=== PATIENT | male | born 1960 | race Caucasian/White ===

== ENCOUNTER 2023-02-16 08:38 | Outpatient (CLI) | payer BC, SELFPAY | END 2023-02-16 08:39 | disposition home or self-care (01) | PROVIDERS: Visit Provider Family Medicine | DX: Z01.818 Encounter for other preprocedural examination (principal); E78.5 Hyperlipidemia, unspecified; E03.9 Hypothyroidism, unspecified; E23.0 Hypopituitarism; Z13.6 Encounter for screening for cardiovascular disorders; Z12.5 Encounter for screening for malignant neoplasm of prostate | CPT/HCPCS: 80048; 80061; 84153; 84443; 85025 ==

== ENCOUNTER 2023-03-03 09:03 | Outpatient (CLI) | payer BC, SELFPAY | END 2023-03-03 09:04 | disposition home or self-care (01) | PROVIDERS: PCP Family Medicine; Visit Provider Orthopaedic Surgery | DX: Z01.818 Encounter for other preprocedural examination (principal) | CPT/HCPCS: 36415; 86850; 86900; 86901 ==

== ENCOUNTER 2023-03-04 08:54 | Outpatient (CLI) | payer BC, SELFPAY ==
[2023-03-04 14:35] LABS: SARS PCR* Negative SARS-CoV-2 (Negative)
== END 2023-03-04 08:55 | disposition home or self-care (01) ==
LOC: FBOREF 08:54
PROVIDERS: PCP Family Medicine; Visit Provider Orthopaedic Surgery
DX: Z01.812 Encounter for preprocedural laboratory examination (principal); Z20.822 Contact with and (suspected) exposure to COVID-19
CPT/HCPCS: 87635

== ENCOUNTER 2023-03-05 07:09 | Day surgery (SDC) | payer BC, SELFPAY ==
[2023-03-05] VITALS (23 sets, daily range): BP systolic 97–139; BP diastolic 59–115; PULSE 58–94; RESP 14–20; TEMP 36.1–36.9; O2SAT 95–100; BMI 29.3
--- NOTE | 2023-03-05 07:50 | SUR.PREOP ---
pt has scoriasis on his lower extremities, scalp and arms
[2023-03-05] MEDS: OXYCODONE (CR) 10 MG TAB.ER.12H PO (08:15)
[2023-03-05] MEDS: CELECOXIB 200 MG CAPSULE PO (08:15)
[2023-03-05] MEDS: ACETAMINOPHEN 500 MG TABLET 1000 MG PO ×3 (08:15→21:46)
[2023-03-05] MEDS: SODIUM CHLORIDE 0.9 % (FLUSH) 10 ML SYRINGE IVF ×2 (08:25→23:38)
[2023-03-05] MEDS: LACTATED RINGERS 1000 ML 1,000 ML 100 ML IV ×3 (08:25→11:55)
[2023-03-05] MEDS: MIDAZOLAM HCL 1 MG/ML inj IVP (09:25)
[2023-03-05] MEDS: fentaNYL 100 MCG/2 ML inj IVP (09:25)
--- NOTE | 2023-03-05 09:36 | W.ANESCHARGE ---
Anesthesia Charges Start Date/Time Anesthesia Start Date: 03/05/23 Anesthesia Start Time: 09:36 Stop Date/Time Anesthesia Stop Date: 03/05/23 Anesthesia Stop Time: 12:27
[2023-03-05] MEDS: CEFAZOLIN 2 GM INJ IVP (09:45)
--- NOTE | 2023-03-05 09:45 | CRLHL7_ITS ---
For Patients: As a result of the Cures Act, medical imaging exams and procedure reports are released immediately into your electronic medical record. You may view this report before your referring provider. If you have questions, please contact your health care provider. Indication: Hip replacement surgery Technique: AP hip fluoroscopic images. Fluoroscopy time 80.2 seconds. Findings/Impression: Hardware from a right total hip arthroplasty is in satisfactory position. Dictated by Anuj Fuentes MD @ 03/05/2023 12:28:55 PM (Electronically Signed)
[2023-03-05] MEDS: TRANEXAMIC ACID 100 MG/ML INJ 1000 MG IV (09:48)
--- NOTE | 2023-03-05 11:46 | CRLHL7_ITS ---
For Patients: As a result of the Cures Act, medical imaging exams and procedure reports are released immediately into your electronic medical record. You may view this report before your referring provider. If you have questions, please contact your health care provider. Indication: Post op right HOLDEN Technique: AP hip centered pelvis and lateral view right hip Findings/Impression: Hardware from a right total hip arthroplasty is in satisfactory position. Bone alignment is normal. No sign of acute fracture. Postop changes are within normal limits. Dictated by Anuj Fuentes MD @ 03/05/2023 12:55:29 PM (Electronically Signed)
--- NOTE | 2023-03-05 11:48 | P.ORPRC_ITS ---
Procedure Note Date of procedure: 03/05/23 Procedure: PREOPERATIVE DIAGNOSIS: Right hip osteoarthritis POSTOPERATIVE DIAGNOSIS: Right hip osteoarthritis NAME OF OPERATION: Right total hip arthroplasty SURGEON: Dex Mojica MD MANAGER TRAINEE: Andie Denise PA-C, ALESHA Lancaster IMPLANTS: 1. [employer] # 52 sector ingrowth cup 2. 36 x 52 +4 neutral polyethylene 3. Actis # 6 high offset collared ingrowth stem 4. 36 + 1.5 ceramic femoral head ANESTHESIA: General ESTIMATED BLOOD LOSS: 500 cc COMPLICATIONS: None SPECIMENS: None DRAINS: None PREOPERATIVE ANTIBIOTICS: Ancef 2 grams INDICATIONS: The patient is a 62-year-old with a longstanding history of severe, unrelenting right hip pain secondary to end-stage right hip osteoarthritis. Despite appropriate nonoperative management, including activity modification, use of an assist device, anti-inflammatories, vvra-[id number] pain medication, physical therapy and injections, they continue to have pain and disability. Operative intervention was offered. The risks, benefits and expected outcomes were discussed in detail. These included but were not limited to: Infection, bleeding, injury to blood vessel or nerve, venous thromboembolism. All questions were answered to their satisfaction. Use of an payroll administrative assistant was necessary throughout the case for patient positioning and safety, soft tissue retraction and closure. PROCEDURE: The patient was placed supine on the Ferguson table. General anesthesia was administered. The payroll administrative assistant made sure the patient was properly positioned. The right hip was prepped and draped in the usual sterile fashion. The image intensifier was brought in for a perfect AP pelvis and a perfect double tear drop AP view of each hip which were used for intraoperative templating with our fluoroscopic guide. An oblique incision was made 3 cm distal and 3 cm lateral to the anterior lopez perior iliac spine. The payroll administrative assistant retracted the soft tissues to protect them. Subcutaneous dissection was taken with electrocautery to the superficial fascia. The fascia was divided in line with the incision. Blunt dissection was carried medially to the tensor fascia hiram and sartorius interval. Deep dissection was carried with electrocautery. The circumflex vessels were cauterized and divid ed. The capsule was exposed and then divided in a T-fashion, tagged with #1 Ethibond sutures. Retractors were placed in the joint, held by the payroll administrative assistant. The corkscrew was placed in the femoral head. The neck cut was made in the subcapital region. We made a second neck cut more distal. The napkin ring of bone was removed. The femoral head was removed intact. Acetabular retractors were placed, held by the payroll administrative assistant. The labrum was sharply debrided. The capsule was released. The 43 mm reamer was used to the true medial wall. We then enlarged in 2 mm increments using the image intensi fier for our reamer placement. We impacted the cup which had excellent purchase. We placed the hole eliminator and the polyethylene. Attention was then turned to the proximal femur. The limb was placed in 140 degrees of external rotation, maximum extension and adduction. A significant amount of time was spent releasing the capsule to allow us to deliver the femur into the wound and complete the femoral side safely. Retractors were held by the payroll administrative assistant throughout the femoral preparation. The box sorter and canal finder were used. Broaches were used to a stable size. The calcar reamer was used. Trial components were placed. The hip was reduced and was found to be stable with appropriate soft tissue tension. Length and offset had been nicely restored using the image intensifier and our fluoroscopic guide. Trial components were removed. The stem was impacted. We placed the femoral head. Again, the hip was reduced and was found to be stable with appropriate soft tissue tension. Length and offset had been nicely restored. The payroll administrative assistant did a three minute dilute Betadine solution soak. The payroll administrative assistant irrigated the wound with 3 liters of normal saline via pulse lavage. The payroll administrative assistant repaired the anterior capsule with a #1 Vicryl and our previously placed Ethibond sutures. The payroll administrative assistant closed the fascia over the tensor fascia hiram with a #1 PDO Stratafix, subcutaneous tissues with 2-0 Vicryl, skin with a running 3-0 Stratafix and glue. A dry dressing was applied by the payroll administrative assistant. Sponge and needle counts were correct x 2. The patient tolerated the procedure well; there were no apparent complications. They were awakened and extubated in the operating room, sent to the Post-Anesthesia Care Unit in satisfactory condition. PLAN: 1. The patient will be mobilized with physical therapy, weight-bearing as tolerates 2. Xarelto x 5 days then aspirin x 30 days will be used for DVT prophylaxis 3. The patient will be discharged once medically appropriate
--- NOTE | 2023-03-05 12:02 | W.PM.NB ---
Nerve Block Nerve Block Time Seen by Provider: 09:28 Date Seen: 03/05/23 Type of block requested by surgeon for post-operative analgesia: BRANDIN/LFCN Side: right Time out performed: Yes Verification of patient name: Yes Verification of date of : Yes Site marking: site marked Name of person performing procedure: Jun Continuous monitoring Was continuous monitoring of O2 sat, B/P, quality assurance monitor final, recorded every 15 minutes?: Yes Procedure Checklist: sterile prep, needles and gloves Ultrasound guided. Images saved: Yes Medications given in 5ml increments after negative aspiration: Ropivicaine %: 0.5 mL: 30 Needle gauge: 20 Decadron (mg): 10 Precedex (mcg): 25 Patient tolerated procedure well: Yes Additional comments: Needle noted below psoas tendon needle noted adjacent to LFCN Block Charges Block Charge (with Pro Fee): Other Periph Nerve Block Use of Ultrasound Machine for Block: Yes- US Guidance/pain block
--- NOTE | 2023-03-05 12:27 | W.ANESCHARGE ---
Anesthesia Charges Start Date/Time Anesthesia Start Date: 03/05/23 Anesthesia Start Time: 09:36 Stop Date/Time Anesthesia Stop Date: 03/05/23 Anesthesia Stop Time: 12:27
[2023-03-05] MEDS: HYDROmorphone 0.5 mg/0.5 ml inj IVP (13:44)
--- NOTE | 2023-03-05 15:40 | PC.NURSE ---
Pt presented to MS unit at 1305 from right hip replacement. Pt c/o pain 5/10 requesting no intervention at that time. Pt's present in room with pt post op. Incision dressing in place, intact with no drainage noted. Pt later rated pain 6/10, prn Dilaudid administered resulting in relief. Pt tolerating crackers and water with no nausea reported.
--- NOTE | 2023-03-05 15:56 | P.IMCN_ITS ---
Date of Consult Patient: [facility] Patient Consult date: 03/05/23 Primary Care Provider: Dr. Castro Consult Narrative Reason for consult: Medical management of comorbidities Narrative: Haroldo Munguia is a 62 year old male who presented to the hospital today for an elective R HOLDEN with Dr. Mojica of Orthopedic Surgery. There were no surgical or anesthetic complications noted during procedure. Requiring low dose supplemental oxygen postoperatively; no chest pain or shortness of breath. Patient's H&P reviewed, patient has recently transitioned to Dr. Castro locally for Primary Care. Past medical history significant for: Panhypopituitarism (s/p adenoma removal). Patient is followed by Endocrinology at [place]. History of blood clots: No Postoperative plan: Home with Review of Systems Status of ROS: Reports: 10 or more systems reviewed and unremarkable except as noted in History and below [facility] Medical History (Updated 03/05/23 @ 16:02 by Lori Laguerre MD) History of kidney stones ?Z87.442 - Personal history of urinary calculi (ICD-10) History of seizures ?Z87.898 - Personal history of other specified conditions (ICD-10) Hyperlipidemia ?E78.5 - Hyperlipidemia, unspecified (ICD-10) Hypothyroidism ?E03.9 - Hypothyroidism, unspecified (ICD-10) Insomnia ?G47.00 - Insomnia, unspecified (ICD-10) BRYANT (obstructive sleep apnea) ?G47.33 - Obstructive sleep apnea (adult) (pediatric) (ICD-10) Osteoarthritis of right hip ?M16.11 - Unilateral primary osteoarthritis, right hip (ICD-10) Panhypopituitarism ?E23.0 - Hypopituitarism (ICD-10) Psoriasis ?L40.9 - Psoriasis, unspecified (ICD-10) Testosterone deficiency ?E34.9 - Endocrine disorder, unspecified (ICD-10) Surgical History (Updated 03/05/23 @ 16:01 by Lori Laguerre MD) History of colonoscopy (08/23/20) ?Z98.890 - Other specified postprocedural states (ICD-10) History of pituitary surgery (2012) ?Z98.890 - Other specified postprocedural states (ICD-10) Family History (Updated 02/24/23 @ 11:24 by Charley Cummings RN) Father CHF (congestive heart failure) COPD (chronic obstructive pulmonary disease) Mother Diabetes Alzheimers disease Brother Lung cancer Sister Breast cancer Diabetes Sleep apnea Other Family history of hypertension Family history of kidney stone Social History (Updated 03/05/23 @ 15:59 by Lori Laguerre MD) Narrative: Lives with , splits time between [place] and [place]; works in [employer]. Nonsmoker, no alcohol use. Smoking Status: Never smoker Do you use any of these nicotine containing products: None How often do you have a drink containing alcohol: never AUDIT-C Alcohol total score: 0 Non-prescribed substance use: denies use Caffeine: Yes (coffee, 2 cups/day; Mountain Dew occ.) Little interest or pleasure in doing things: not at all Feeling down, depressed, or hopeless: not at all Meds Home Medications and Allergies Home Medications Medication Instructions Recorded Confirmed Type glucosamine sulfate 500 mg tablet 500 mg PO BID 01/26/23 03/05/23 History (Glucosamine) levothyroxine 75 mcg tablet 75 mcg PO DAILY 01/26/23 03/05/23 History multivitamin 1 tab PO QAM 01/26/23 03/05/23 History somatropin 5 mg/1.5 mL (3.3 mg/mL) 1.6 mg subcut 02/16/23 02/16/23 History subcutaneous cartridge (Omnitrope) testosterone 2 pump topical QDAY 02/16/23 03/05/23 History Allergies Allergy/AdvReac Type Severity Reaction Status Date / Time Penicillins Allergy Unknown Verified 03/05/23 07:26 Exam Narrative: Exam Narrative: GEN: Alert and oriented, answering questions appropriately HEENT: EOMIs bilaterally, no scleral icterus CV: RRR, No concerning murmurs, rubs, or gallops R: LCTA bilaterally without concerning wheezing, rales, or rhonchi Ext: Wearing Marlon hose on bilateral lower extremities Skin: No concerning skin lesions or rashes on exposed skin Neuro: Nonfocal Psych: Appropriate Const: Vital Signs, click to edit/add: Vital Signs - 24 hr 03/05/23 08:02 03/05/23 09:20 03/05/23 09:30 Temperature 98.4 F Pulse Rate 63 58 L 61 Pulse Rate [Pulse Oximeter] Respiratory Rate 20 20 20 Blood Pressure 139/87 124/84 116/74 Blood Pressure [Le ft Arm] Pulse Oximetry 98 100 97 Oxygen Delivery Me thod Room Air Nasal Cannula Nasal Cannula Oxygen Flow Rate 3 3 03/05/23 12:24 03/05/23 12:25 03/05/23 12:30 Temperature 97.6 F Pulse Rate 75 71 73 Pulse Rate [Pulse Oximeter] Respiratory Rate 14 16 16 Blood Pressure 113/80 113/75 108/74 Blood Pressure [Le ft Arm] Pulse Oximetry 96 96 95 Oxygen Delivery Me thod Room Air Room Air Room Air Oxygen Flow Rate 03/05/23 12:35 03/05/23 12:40 03/05/23 12:45 Temperature 97.8 F Pulse Rate 74 66 64 Pulse Rate [Pulse Oximeter] Respiratory Rate 16 16 16 Blood Pressure 99/73 112/63 107/77 Blood Pressure [Le ft Arm] Pulse Oximetry 95 96 98 Oxygen Delivery Me thod Room Air Room Air Room Air Oxygen Flow Rate 03/05/23 12:50 03/05/23 12:55 03/05/23 13:05 Temperature 97.7 F 97 F L Pulse Rate 68 68 60 Pulse Rate [Pulse Oximeter] Respiratory Rate 16 16 18 Blood Pressure 113/72 114/74 Blood Pressure [Le ft Arm] 101/72 Pulse Oximetry 95 99 Oxygen Delivery Me thod Room Air Room Air Room Air Oxygen Flow Rate 03/05/23 13:14 03/05/23 13:15 03/05/23 13:30 Temperature 97 F L Pulse Rate 60 Pulse Rate [Pulse Oximeter] 64 62 Respiratory Rate 18 Blood Pressure 101/72 Blood Pressure [Le ft Arm] 106/76 108/74 Pulse Oximetry 99 98 98 Oxygen Delivery Me thod Room Air Room Air Room Air Oxygen Flow Rate 03/05/23 13:45 03/05/23 14:00 03/05/23 14:30 Temperature Pulse Rate Pulse Rate [Pulse Oximeter] 70 65 74 Respiratory Rate 14 Blood Pressure Blood Pressure [Le ft Arm] 106/72 97/71 106/75 Pulse Oximetry 98 98 98 Oxygen Delivery Me thod Room Air Oxygen Flow Rate 1 1 03/05/23 15:00 Temperature 97.3 F L Pulse Rate Pulse Rate [Pulse Oximeter] 66 Respiratory Rate 16 Blood Pressure Blood Pressure [Le ft Arm] 111/76 Pulse Oximetry 96 Oxygen Delivery Me thod Room Air Oxygen Flow Rate 1 Assessment and Plan Assessment and plan (1) Status post right hip replacement: Problem comment: - 03/05/[address] Mojica Status: Acute (2) Panhypopituitarism: Problem comment: - s/p adenoma removal - [facility] Status: Chronic Plan - pain management and prophylaxis per Orthopedic Surgery team - wean supplemental oxygen as tolerated - Continue home medications - Anticipate routine postoperative course
[2023-03-05] MEDS: CEFAZOLIN 2 GM in 0.9 % SODIUM CHLORIDE Mini-bag 100 ML IVPB ×2 (16:43→23:38)
--- NOTE | 2023-03-05 18:04 | PC.NURSE ---
End of Shift([id number]): Patient pleasant and cooperative. Patient vitally stable, lungs clear, BS WNL, IV running LR at 75. Patient 1 assist, walker, gb, and up in the chair. Patient tolerating regular diet but has not urinated. Patient only given scheduled tylenol, patient currently rating pain 3-4/10. Patient right hip dressing C/D/I.
[2023-03-05] MEDS: SENNOSIDES 1 TAB TABLET 2 TAB PO (21:47)
[2023-03-05] MEDS: GLUCOSAMINE SULFATE 500 MG CAPSULE PO (21:47)
--- NOTE | 2023-03-06 01:12 | PC.NURSE ---
Pt pleasant and cooperative. Up in chair with assist of one and walker. Minimal pain noted per pt. 2-01/23 with just scheduled Tylenol. VSS. Tolerating his diet.
[2023-03-06] MEDS: OXYCODONE 5 MG TABLET PO ×3 (01:29→08:13)
[2023-03-06] MEDS: ACETAMINOPHEN 500 MG TABLET 1000 MG PO ×2 (02:20→10:19)
[2023-03-06 02:26] VITALS: BP 119/63; PULSE 89; RESP 16; TEMP 36.8; O2SAT 93
--- NOTE | 2023-03-06 05:04 | PC.NURSE ---
[id number] Pt rested well throughout shift, walked halls x1 and tolerated activity well. pain managed with prn pain medications, dressing to R hip C/D/I. denies chest pain, headache, lightheaded, dizziness, N or V. voiding without difficulty, passing gas.
[2023-03-06] MEDS: LEVOTHYROXINE 75 MCG TABLET PO (06:02)
[2023-03-06 06:45] LABS: Hematocrit 33.5 % (37.0-53.0); Hemoglobin* 11.3 gm/dL (13.5-17.5); Immature Granulocytes Abs Auto 0.03 K/uL (0.00-0.30); Immature Granulocytes Pct Auto 0.3 %; Lymphocytes Percent Auto 8.6 % (20-44); Mean Corpuscular HGB Conc 34 gm/dL (32-36); Mean Corpuscular Hemoglobin 29 pg (26-34); Mean Corpuscular Volume 87 fL (80-100); Monocytes Percent Auto 7.8 % (0.0-11.0); Neutrophils Percent Auto 83.3 % (42.0-72.0); Platelet Count* 247 K/uL (140-440); RDW Coefficient of Variation % 12.8 % (11.5-15.5); Red Blood Count 3.85 m/uL (4.30-5.90); White Blood Count* 10.87 K/uL (4.50-11.00)
[2023-03-06 06:49] LABS: Slide Review Reflex No
[2023-03-06 06:58] LABS: Sodium* 136 mmol/L (135-149)
[2023-03-06 06:59] LABS: Potassium* 4.5 mmol/L (3.6-5.1)
[2023-03-06 07:00] VITALS: BP 135/78; PULSE 86; RESP 20; TEMP 36.6; O2SAT 98
[2023-03-06 07:01] LABS: Creatinine* 0.7 mg/dL (0.5-1.5); Est. Creatinine Clearance* 119.52; Estimated Glomerular Filt Rate 105 ml/min
[2023-03-06 07:02] LABS: Blood Urea Nitrogen* 17 mg/dL (7-30)
[2023-03-06] MEDS: CEFAZOLIN 2 GM in 0.9 % SODIUM CHLORIDE Mini-bag 100 ML IVPB (08:12)
[2023-03-06] MEDS: RIVAROXABAN 10 MG TABLET PO (08:13)
[2023-03-06] MEDS: GLUCOSAMINE SULFATE 500 MG CAPSULE PO (08:13)
[2023-03-06] MEDS: MULTIVITAMIN/MINERALS 1 TABLET 1 TAB PO (08:14)
[2023-03-06] MEDS: SENNOSIDES 1 TAB TABLET 2 TAB PO (08:14)
[2023-03-06] MEDS: SODIUM CHLORIDE 0.9 % (FLUSH) 10 ML SYRINGE IVF (08:15)
[2023-03-06 09:22] VITALS: BP 101/72; PULSE 60; RESP 20; TEMP 36.6
--- NOTE | 2023-03-06 14:34 | PM.ORPN ---
Subjective Subjective Time Seen by Provider: 07:15 Date Seen: 03/06/23 Principal diagnosis: Status post right total hip arthroplasty 03/05/2023 Interval history: Ben is comfortable. He plans to discharge to home today. Ortho Exam Narrative Exam Narrative: Alert and oriented x3. Patient is in no acute distress. Converses without labored breathing. Hearing is grossly intact. Ambulates with a walker. Examination the right hip shows the dressing is intact. Mild edema. No erythema or drainage or sign of infection. CMS is intact right lower extremity. Bilateral calves are soft and nontender. Good quad strength. Const Vital Signs, click to edit/add: Vital Signs - 24 hr 03/05/23 15:00 03/05/23 15:00 03/05/23 16:00 Temperature 97.3 F L 98.1 F Pulse Rate Pulse Rate [Pulse Oximeter] 66 61 61 Respiratory Rate 16 16 16 Blood Pressure Blood Pressure [Left Arm] 111/76 108/59 L Pulse Oximetry 96 97 Oxygen Delivery Method Room Air Room Air Oxygen Flow Rate 1 03/05/23 17:00 03/05/23 19:00 03/05/23 23:00 Temperature 98.1 F 98.5 F 98.1 F Pulse Rate Pulse Rate [Pulse Oximeter] 76 94 85 Respiratory Rate 16 16 16 Blood Pressure Blood Pressure [Left Arm] 130/115 H 122/77 116/69 Pulse Oximetry 97 98 95 Oxygen Delivery Method Room Air Room Air Room Air Oxygen Flow Rate 0 03/06/23 02:26 03/06/23 07:00 03/06/23 09:22 Temperature 98.2 F 97.9 F 97.9 F Pulse Rate 60 Pulse Rate [Pulse Oximeter] 89 86 Respiratory Rate 16 20 20 Blood Pressure 101/72 Blood Pressure [Left Arm] 119/63 135/78 Pulse Oximetry 93 98 Oxygen Delivery Method Room Air Room Air Oxygen Flow Rate 0 03/06/23 07:00 Temperature Pulse Rate Pulse Rate [Pulse Oximeter] 86 Respiratory Rate 20 Blood Pressure Blood Pressure [Left Arm] Pulse Oximetry Oxygen Delivery Method Oxygen Flow Rate Assessment and Plan Assessment and plan (1) Status post right hip replacement: Problem details: - 03/05/[address] Mojica Status: Acute Assessment and Plan: Plan for discharge is today to home if they meet discharge criteria. DVT prophylaxis includes Xarelto 10 mg daily for total of 5 days, then aspirin 81 mg twice daily for 30 days, Marlon stockings x1 month may remove for 1 hr per day, frequent ambulation Remove dressing 1 week. Observe wound and phone Orthopedics with any questions or concerns Use Ice on operative hip unrestricted. Return to clinic in 1 week with PA for a wound check Return to clinic in [address] Mojica Minimize narcotic use. Wean off and discontinue soon as possible. Activities as tolerated. No strenuous activity. Attend outpt PT (2) Panhypopituitarism: Problem details: - s/p adenoma removal - [facility] Status: Chronic
== END 2023-03-06 11:45 | disposition home or self-care (01) ==
LOC: OR 07:09 → MEDSURG 08:27
PROVIDERS: Visit Provider Orthopaedic Surgery
PROC: (CPT 27130; principal; 2023-03-05 09:45)
DX: M16.11 Unilateral primary osteoarthritis, right hip (principal); G47.33 Obstructive sleep apnea (adult) (pediatric); E23.0 Hypopituitarism
CPT/HCPCS: 27130; 01214; 36415; 64450; 73501; 76000; 76942; 82565; 84132; 84295; 84520; 85025; 86850; 86900; 86901; 97110; 97116; 97161; 97165; 97535; A9153; A9270; C1776; J0330; J0690; J1100; J1170; J2250; J2370; J2405; J2704; J2795; J3010; J7120

== ENCOUNTER 2023-04-30 09:00 | Outpatient (RCR) | payer BC, SELFPAY | END 2023-05-01 15:24 | disposition home or self-care (01) | PROVIDERS: Visit Provider Orthopaedic Surgery | DX: M16.11 Unilateral primary osteoarthritis, right hip (principal); Z96.641 Presence of right artificial hip joint; Z51.89 Encounter for other specified aftercare | CPT/HCPCS: 97110; 97140; 97161; 97535 ==

== ENCOUNTER 2024-05-11 10:04 | Outpatient (CLI) | payer BC, SELFPAY ==
--- OUTSIDE RECORDS SUMMARY | 2024-05-11 10:07 | XMS_ITS | Encounter Summary ---
Author Organization [facility] Address [address] [place] [id number] Care Team Providers Care Lactation Consultant Name Role Phone Anuj Collins Primary Care Provider [phone] Kamilah Marroquin MD Unavailable [phone] Kamilah Marroquin MD Unavailable [phone] Ketan Garcia MD Unavailable + Reason for Visit * Reason Onset Date Comments Refill Request 05/27/2021 Encounter Details Date Type Department Care Team (Late st Contact Info) Description 05/27/[address] [facility] [address] [place] [address] Kamilah Marroquin MD [address] [facility] [place] [address] [place] [address] Refill Request Social History Tobacco Use Types Packs/Day Years Used Date Smoking Tobacco: Never Smokeless Tobacco: Never Alcohol Use Standard Drinks/Week Comments No 0 (1 standard drink = 0.6 oz pur e alcohol) PHQ-2 Answer Date Recorded PHQ-2 Score 0 10/04/2019 Sex and Gender Information Value Date Recorded Sex Assigned at Not on file Gender Identity Not on file Sexual Orientation Not on file COVID-19 Exposure Response Date Recorded In the last month, have you been in contact with someone who was confirmed or suspected to have Coronavirus / COVID-19? Unable to assess 05/24/2021 8:53 AM CDT documented as of this encounter Miscellaneous Notes * Telephone Encounter - Michelle Montoya RN - 05/27/2021 3:01 PM CDT levothyroxine (SYNTHROID/LEVOTHROID) 75 MCG tablet Take 1 tablet (75 mcg) by mouth daily Last Written Prescription Date: 04/23/21 Last Fill Quantity: 30, # refills: 0 Last Office Visit : 10/04/19 Return in about 1 year (around 10/04/2020). Future Office visit: 08/20/21 Routing refill request to provider for review/approval because: Overdue visit > 18 month and lab - TSH Scheduling has been notified to contact the pt for appointment. documented in this encounter Plan of Treatment Upcoming Encounters Date Type Department Care Team (Late st Contact Info) Description 08/16/2024 1:30 PM CDT Office Visit [facility] End[facility] [address] [place] [phone] Kamilah Marroquin MD [address] [place] [address] [phone] documented as of this encounter Visit Diagnoses Diagnosis Hypothyroidism, unspecified type documented in this encounter Care Teams Lactation Consultant Relationship Specialty Start Date End Date Anuj Collins PCP - General Internal Medicine 03/02/13 Kamilah Marroquin MD [address] [place] [address] [phone] INTERNAL MEDICINE - ENDOCRINOLOGY, DIABETES & METABOLISM 06/03/16 Kamilah Marroquin MD [address] [place] [address] [phone] Assigned Endocrinology Provider 08/25/21 Ketan Garcia MD [address] [place] [address] Assigned Neuroscience Provider 10/18/22 05/07/24 documented as of this encounter
--- OUTSIDE RECORDS SUMMARY | 2024-05-11 10:07 | XMS_ITS | Encounter Summary ---
Author Organization [facility] Address [address] [place] [id number] Care Team Providers Care Contract Accountant Name Role Phone Anuj Collins Primary Care Provider [phone] Kamilah Marroquin MD Unavailable [phone] Kamilah Marroquin MD Unavailable [phone] Ketan Garcia MD Unavailable + Reason for Visit * Reason Comments Medication Refill OMNITROPE 5MG/1.5ML SOCT Encounter Details Date Type Department Care Team (Late st Contact Info) Description [facility] [address] [place] [address] Kamilah Marroquin MD [address] [place] [address] [address] [place] [address] Medication Refill (OMNITROPE 5MG/1.5ML SOCT) Social History Tobacco Use Types Packs/Day Years Used Date Smoking Tobacco: Never Smokeless Tobacco: Never Alcohol Use Standard Drinks/Week Comments No 0 (1 standard drink = 0.6 oz pur e alcohol) PHQ-2 Answer Date Recorded PHQ-2 Score 0 10/14/2022 Adolescent Education Answer Date Record ed Getting School Help Needed Not on file 08/07 Sex and Gender Information Value Date Recorded Sex Assigned at Not on file Gender Identity Not on file Sexual Orientation Not on file documented as of this encounter Miscellaneous Notes * Telephone Encounter - Jocelyne Valenzuela RN - 03/15/2024 3:44 PM CDT OMNITROPE 5MG/1.5ML SOCT Last Written Prescription Date: 12/31/23 Last Fill Quantity: 1 each , # refills: 5 Last Office Visit : 09/01/23 Future Office visit: 08/16/24 Routing refill request to provider for review/approval because: OMNITROPE 5MG/1.5ML SOCT Inject 0.2 mg Subcutaneous daily requested by pharmacy. Last medication sent was Somatropin (GENOTROPIN) 5 MG CART : Inject 0.2 mg Subcutaneous 12/31/23 1 each/ 5 refills to [facility] ( Omnitrope was backordered until February 2024.) documented in this encounter Plan of Treatment Upcoming Encounters Date Type Department Care Team (Late st Contact Info) Description 08/16/2024 1:30 PM CDT Office Visit [facility] [address] [place] [address] Kmailah Marroquin MD [address] [place] [phone] documented as of this encounter Visit Diagnoses Diagnosis Growth hormone deficiency (H24) Pituitary dwarfism documented in this encounter Care Teams Contract Accountant Relationship Specialty Start Date End Date Anuj Collins PCP - General Internal Medicine 03/02/13 Kamilah Marroquin MD [address] [place] [id number] INTERNAL MEDICINE - ENDOCRINOLOGY, DIABETES & METABOLISM 06/03/16 Kamilah Marroquin MD [address] [place] [address] [phone] Assigned Endocrinology Provider 08/25/21 Ketan Garcia MD [address] [place] [address] Assigned Neuroscience Provider 10/18/22 05/07/24 documented as of this encounter
--- OUTSIDE RECORDS SUMMARY | 2024-05-11 10:07 | XMS_ITS | Encounter Summary ---
Author Organization [place] Address [address] [place] [address] Care Team Providers Care Building Illuminating Engineer Name Role Phone Anuj Collins Primary Care Provider [phone] Kamilah Marroquin MD Unavailable [phone] Kamilah Marroquin MD Unavailable [phone] Ketan Garcia MD Unavailable + Encounter Details Date Type Department Care Team (Late Contact Info) Description 10/02/2023 MyC Medical Advice [facility] [address] [place] [phone] Charlene Tao Social History Tobacco Use Types Packs/Day Years [...] on file documented as of this encounter Plan of Treatment Upcoming Encounters Date Type Department Care Team ([facility] Contact Info) Description 08/16/2024 1:30 PM CDT Office Visit [facility] Endocr[facility]ology Clinic [address] [place] [address] Kamilah Marroquin MD [address] [address] documented as of this encounter Visit Diagnoses Not on filedocumented in this encounter Care Teams Building Illuminating Engineer Relationship Specialty Start Date End Date Anuj Collins PCP - General Internal Medicine 03/02/13 Kamilah Marroquin MD [address] [place] [address] INTERNAL MEDICINE - ENDOCRINOLOGY, DIABETES & METABOLISM 06/03/16 Kamilah Marroquin MD [address] [place] [address] Assigned Endocrinology Provider 08/25/21 Ketan Garcia MD 909 [place] [address] Assigned Neuroscience Provider 10/18/22 05/07/24 documented as of this encounter
--- OUTSIDE RECORDS SUMMARY | 2024-05-11 10:07 | XMS_ITS | Referral Summary ---
Author Organization [place] Address [address] [place] [address] Care Team Providers Care Concessions Manager Name Role Phone Anuj Collins Primary Care Provider Kamilah Marroquin MD Unavailable [phone] Kamilah Marroquin MD Unavailable [phone] Encounters Date Type Department Care Team Description 03/14/2024 Refill [facility] [address] [address] Kamilah Marroquin MD Refill Request (/testosterone (ANDROGEL 1.62% PUMP) 20.25 MG/ACT gel /) 03/14/2024 Refill [facility] [address] [address] Kamilah Marroquin MD Medication Refill (OMNITROPE 5MG/1.5ML SOCT) from Last 3 Months Allergies Active Allergy Reactions Criticality Noted Date Comments Penicillins 03/03/2013 Allergy to Penicillin runs in the family. Medications Medication Sig Dispensed Refills Start Date End Date Status Pediatric Multivitamins-Fl (MULTI VIT/FL PO) Take 1 tablet by mouth daily. Active glucosamine-chondro itin 500-400 MG CAPS per capsuleIndications: 2164-2912 capsule Take 2 capsules by mouth 2 times daily Active levothyroxine (SYNTHROID/LEVOTHRO ID) 75 MCG tabletIndications:H ypothyroidism, unspecified type Take 1 tablet (75 mcg) by mouth daily 90 tablet 3 09/01/2023 Active Somatropin (GENOTROPIN) 5 MG CARTIndications:Fawad wth hormone deficiency (H24) Inject 0.2 mg Subcutaneous daily 1 each 5 12/31/2023 Active OMNITROPE 5 MG/1.5ML SOCTIndications:Fawad wth hormone deficiency (H24) INJECT 0.2MG UNDER THE SKIN ONCE DAILY 1.5 mL 5 03/16/2024 Active testosterone (ANDROGEL 1.62% PUMP) 20.25 MG/ACT gelIndications:Low testosterone Place 2 pumps (40.5 mg) onto the skin daily to clean, dry, intact skin of the upper arms and shoulders 90 day supply 225 g 3 03/16/2024 Active Active Problems Problem Noted Date Diagnosed Date Hypogonadism male 07/24/2022 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 Pituitary adenoma 03/10/2013 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 Pituitary tumor 03/03/2013 Social History Tobacco Use Types Packs/Day Years Used Date Smoking Tobacco: Never Smokeless Tobacco: Never Tobacco Cessation:Counseling Given: Not Answered Alcohol Use Standard Drinks/Week Comments No 0 (1 standard drink = 0.6 oz pur e alcohol) PHQ-2 Answer Date Recorded PHQ-2 Score 0 10/14/2022 Adolescent Education Answer Date Record ed Getting School Help Needed Not on file 08/07 Sex and Gender Information Value Date Recorded Sex Assigned at Not on file Gender Identity Not on file Sexual Orientation Not on file Last Filed Vital Signs Vital Sign Reading Time Taken Comments Blood Pressure 130/78 09/01/2023 1:06 PM CDT Pulse 67 09/01/2023 1:06 PM CDT Temperature 36.8 ??C (98.3 ??F) 12/17/2016 7:57 AM CS T Respiratory Rate 16 07/06/2013 7:29 AM CDT Oxygen Saturation 97% 09/01/2023 1:06 PM CDT Inhaled Oxygen Concentration - - Weight 95.3 kg (210 lb) 09/01/2023 1:06 PM CDT Height 182.9 cm (6') 09/01/2023 1:06 PM CDT Body Mass Index 28.48 09/01/2023 1:06 PM CDT Plan of Treatment Upcoming Encounters Date Type Department Care Team (Late st Contact Info) Description 08/16/2024 1:30 PM CDT Office Visit [facility] [address] 3rd [place] [address] Kamilah Marroquin MD 420 [facility] 136 [place], [place] [address] Medical Devices Implanted Type Area Infectious Disease Physician Device Identifier Shelf Expiration Date Model / Serial / Lot Graft Durepair Dura Matrix 2x2 Implanted:Qty: 1 on 03/10/2013 by Radha Tabares MD, MD at [facility] N/A: Brain 08/15/2015 [id number] / / [id number] Procedures Procedure Name Priority Date/Time Associated Diagnosis Comments T4 FREE Routine 09/01/2023 12:27 PM CDT Growth hormone deficiency (H24) Panhypopituitarism (H24) Hypogonadism male BASIC METABOLIC PANEL Routine 10/04/2019 9:54 AM SHANK MAKER Pituitary macroadenoma (H) Panhypopituitarism (H) from Last 3 Months or Most Recently Relevant to Health Maintenance Results * T4 free (09/01/2023 12:27 PM CDT) Free T4 1.33 0.90 - 1.70 ng/dL 09/01/2023 1:43 PM CDT [facility] Blood STRUCTURE OF LEFT UPPER LIMB / Unknown Venipuncture / Unknown 09/01/2023 12:27 PM CDT 09/01/2023 12:28 PM CDT Kamilah Marroquin MD LAB - BLOOD ORDERABL ES [facility] - [address] 1st Floor Lab Core Lab [place] [address] * Basic metabolic panel (10/04/2019 9:54 AM SHANK MAK[facility]) Sodium 137 133 - 144 mmol/L 10/04/2019 10:[address] [facility] Potassium 3.8 3.4 - 5.3 mmol/L 10/04/2019 10:[address] [facility] Chloride 103 94 - 109 mmol/L 10/04/2019 10:[address] [facility] Carbon Dioxide 29 20 - 32 mmol/L 10/04/2019 10:[address] [facility] Anion Gap 5 3 - 14 mmol/L 10/04/2019 10:[address] [facility] Glucose 93 70 - 99 mg/dL 10/04/2019 10:[address] [facility] Urea Nitrogen 11 7 - 30 mg/dL 10/04/2019 10:[address] [facility] Creatinine 0.82 0.66 - 1.25 mg/dL 10/04/2019 10:[address] [facility] GFR Estimate >90 >60 mL/min/{1. 73_m2} 10/04/2019 10:[address] [facility] Comment: Non GFR Calc Starting 11/02/2018, serum creatinine based estimated GFR (eGFR) will be calculated using the Chronic Kidney Disease Epidemiology Collaboration (CKD-EPI) equation. GFR Estimate If Black >90 >60 mL/min/{1. 73_m2} 10/04/2019 10:[address] [facility] Comment: GFR Calc Starting 11/02/2018, serum creatinine based estimated GFR (eGFR) will be calculated using the Chronic Kidney Disease Epidemiology Collaboration (CKD-EPI) equation. Calcium 9.3 8.5 - 10.1 mg/dL 10/04/2019 10:[address] [facility] Blood specimen (specimen) 10/04/2019 9:54 AM [facility] 10/04/2019 9:55 AM [facility] Kamilah Marroquin MD LAB - BLOOD ORDERABL ES [address] [place] [address], [place] [phone] from Last 3 Months or Most Recently Relevant to Health Maintenance Care Teams Concessions Manager Relationship Specialty Start Date End Date Anuj Collins PCP - General Internal Medicine 03/02/13 Kamilah Marroquin MD [address] [place] [address] MD INTERNAL MEDICINE - ENDOCRINOLOGY, DIABETES & METABOLISM 06/03/16 Kamilah Marroquin MD [address] [place] [address] Assigned Endocrinology Provider 08/25/21
--- OUTSIDE RECORDS SUMMARY | 2024-05-11 10:07 | XMS_ITS | Clinical Summary ---
Author Organization [place] Address [address] [place] [address] Care Team Providers Care City Collector Name Role Phone Anuj Collins Primary Care Provider Kamilah Marroquin MD Unavailable [phone] Kamilah Marroquin MD Unavailable [phone] Allergies Active Allergy Reactions Criticality Noted Date Comments Penicillins 03/03/2013 Allergy to Penicillin runs in the family. Medications Medication Sig Dispensed Refills Start Date End Date Status Pediatric Multivitamins-Fl (MULTI VIT/FL PO) Take 1 tablet by mouth daily. 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 Pituitary tumor 03/03/2013 Encounters Date Type Department Care Team Description 03/14/2024 Refill [facility] [address] [phone] Kamilah Marroquin MD Refill Request (/testosterone (ANDROGEL 1.62% PUMP) 20.25 MG/ACT gel /) 03/14/2024 Refill [facility] Endocrinology Clinic [address] [phone] Kamilah Marroquin MD Medication Refill (OMNITROPE 5MG/1.5ML SOCT) from Last 3 Months Social History Tobacco Use Types Packs/Day Years [...] Description 08/16/2024 1:30 PM CDT Office Visit [facility] Endocrinology Clinic [place] [address] [facility] [address] 3rd [place] [address] Kamilah Marroquin MD 420 [facility] 136 [place] [address] Health Maintenance Due Date Last Done Comments ADVANCE CARE PLANNING 1962 ANNUAL REVIEW OF HM ORDERS [address] CT COLONOGRAPHY 1962 FIT 1962 FLEX SIG 1962 sDNA (Cologuard) 1962 HIV SCREENING 1977 HEPATITIS C SCREENING 1980 LIPID 2002 YEARLY PREVENTIVE VISIT 06/11/2021 06/11/2020 RSV VACCINE ( & 60+) (1 - 1-dose 60+ series) 2022 GLUCOSE 10/04/2022 10/04/2019, 05/17, 12/19/2014, Additional history exists ZOSTER IMMUNIZATION (2 of 2) 04/13/2023 02/16/2023 COVID-19 Vaccine ( season) 2023 11/28/2021, 02/27/2021, 01/30/2021 PHQ-2 (once per calendar year) 2023 10/14/2022, 09/02/2022, 08/20/2021, Additional history exists INFLUENZA VACCINE (Season Ended) 2024 09/07/2019, 08/19/2018, 09/10/2017, Additional history exists TSH W/FREE T4 REFLEX 09/01/2024 09/01/2023, 09/01/2023, 09/02/2022, Additional history exists COLONOSCOPY 08/23/2030 08/23/2020, 08/23/2020 COLORECTAL CANCER SCREENING 08/23/2030 DTAP/TDAP/TD IMMUNIZATION (2 - Td or Tdap) 02/16/2033 02/16/2023 HPV IMMUNIZATION Aged Out No longer e ligible based on patient's age to complete this topic IPV IMMUNIZATION Aged Out No longer e ligible based on patient's age to complete this topic MENINGITIS IMMUNIZATION Aged Out No l onger eligible based on patient's age to complete this topic Pneumococcal Vaccine: Pediatrics (0 to 5 Years) and At-Risk Patients (6 to 64 Years) Aged Out No longer eligible based on patient's age to complete this topic RSV MONOCLONAL ANTIBODY Aged Out No l onger eligible based on patient's age to complete this topic Medical Devices Implanted Type Area Digital Content Marketing Manager Device Identifier Shelf Expiration Date Model / Serial / Lot Graft Durepair Dura Matrix 2x2 Implanted:Qty: 1 on 03/10/2013 by Radha Tabares MD, at [facility] N/A: Brain 08/15/2015 [id number] / / [id number] Procedures Procedure Name Priority Date/Time Associated Diagnosis Comments T4 FREE Routine 09/01/2023 12:27 PM CDT Growth hormone deficiency (H24) Panhypopituitarism (H24) Hypogonadism male BASIC METABOLIC PANEL Routine 10/04/2019 9:54 AM EKG MONITOR TECH Pituitary macroadenoma (H) Panhypopituitarism (H) from Last 3 Months or Most Recently Relevant to Health Maintenance Results * T4 free (09/01/2023 12:27 PM CDT) Pathologist [facility] Free T4 1.33 0.90 - 1.70 ng/dL 09/01/2023 1:43 PM CDT [facility] Blood STRUCTURE OF LEFT UPPER LIMB / Unknown Venipuncture / Unknown 09/01/2023 12:27 PM CDT 09/01/2023 12:28 PM CDT Kamilah Marroquin MD LAB - BLOOD ORDERABL ES [facility] CORE LAB [facility] Clin[facility] Surgery [facility] - [address] 1st [place] [address] * Basic metabolic panel (10/04/2019 9:54 AM EKG MONITOR TECH) Pathologist [facility] Sodium 137 133 - 144 mmol/L 10/04/2019 10:28 AM [facility] Potassium 3.8 3.4 - 5.3 mmol/L 10/04/2019 10:28 AM [facility] Chloride 103 94 - 109 mmol/L 10/04/2019 10:28 AM [facility] Carbon Dioxide 29 20 - 32 mmol/L 10/04/2019 10:28 AM [facility] Anion Gap 5 3 - 14 mmol/L 10/04/2019 10:28 AM [facility] Glucose 93 70 - 99 mg/dL 10/04/2019 10:28 AM [facility] Urea Nitrogen 11 7 - 30 mg/dL 10/04/2019 10:28 AM [facility] Creatinine 0.82 0.66 - 1.25 mg/dL 10/04/2019 10:28 AM [facility] GFR Estimate >90 >60 mL/min/{1. 73_m2} 10/04/2019 10:28 AM [facility] Comment: Non GFR Calc Starting 11/02/2018, serum creatinine based estimated GFR (eGFR) will be calculated using the Chronic Kidney Disease Epidemiology Collaboration (CKD-EPI) equation. GFR Estimate If Black >90 >60 mL/min/{1. 73_m2} 10/04/2019 10:28 AM [facility] Comment: GFR Calc Starting 11/02/2018, serum creatinine based estimated GFR (eGFR) will be calculated using the Chronic Kidney Disease Epidemiology Collaboration (CKD-EPI) equation. Calcium 9.3 8.5 - 10.1 mg/dL 10/04/2019 10:28 AM [facility] Blood specimen (specimen) 10/04/2019 9:54 AM EKG MONITOR TECH 10/04/2019 9:55 AM EKG MONITOR TECH Kamilah Marroquin MD LAB - BLOOD ORDERABL ES [address] [phone] from Last 3 Months or Most Recently Relevant to Health Maintenance Care Teams City Collector Relationship Specialty Start Date End Date Anuj Collins PCP - General Internal Medicine 03/02/13 Kamilah Marroquin MD [address] [place] [address] INTERNAL MEDICINE - ENDOCRINOLOGY, DIABETES & METABOLISM 06/03/16 Kamilah Marroquin MD [address] [address] Assigned Endocrinology Provider 08/25/21
--- OUTSIDE RECORDS SUMMARY | 2024-05-11 10:07 | XMS_ITS | Encounter Summary ---
Author Organization [place] Address [address] [place] [address] Care Team Providers Care Maintenance Painter Name Role Phone Anuj Collins Primary Care Provider [phone] Kamilah Marroquin MD Unavailable [phone] Kamilah Marroquin MD Unavailable [phone] Ketan Garcia MD Unavailable + Reason for Visit * Reason Onset Date Comments Refill Request 03/14/2024 testosterone (AN DROGEL 1.62% PUMP) 20.25 MG/ACT gel Encounter Details Date Type Department Care Team (Late st Contact Info) Description 03/14/2024 Refill [facility] Endocrinology Clinic [place] [phone] [facility] 3rd [place] [address] Kamilah Marroquin MD [address] [place] [address] [address] [place] [address] Refill Request (/testosterone (ANDROGEL 1.62% PUMP) 20.25 MG/ACT gel /) Social History Tobacco Use Types Packs/Day Years [...] Encounter - Jocelyne Valenzuela RN - 03/15/2024 3:37 PM CDT testosterone (ANDROGEL 1.62% PUMP) 20.25 MG/ACT gel Last Written Prescription Date: 09/01/23 Last Fill Quantity: 225, # refills: 3 Last Office Visit : 09/01/23 Future Office visit: 08/16/24 ( controlled med must have new script at 6 months). Routing refill request to provider for review/approval Controlled substance * Telephone Encounter - Armida Stack LPN - 03/15/2024 12:53 PM CDT Images from the original note were not included. documented in this encounter Plan of Treatment Upcoming Encounters Date Type Department Care Team (Late st Contact Info) Description 08/16/2024 1:30 PM CDT Office Visit [facility] Endocrinology Clinic [address] [place] [phone] Kamilah Marroquin MD [address] [place] [phone] documented as of this encounter Visit Diagnoses Diagnosis Low testosterone Other testicular hypofunction documented in this encounter Care Teams Maintenance Painter Relationship Specialty Start Date End Date Anuj Collins PCP - General Internal Medicine 03/02/13 Kamilah Marroquin MD [address] [place] [address] INTERNAL MEDICINE - ENDOCRINOLOGY, DIABETES & METABOLISM 06/03/16 Kamilah Marroquin MD [address] [place] [address] 136 [place] [address] Assigned Endocrinology Provider 08/25/21 Ketan Garcia MD [address] [place] [address] Assigned Neuroscience Provider 10/18/22 05/07/24 documented as of this encounter
--- OUTSIDE RECORDS SUMMARY | 2024-05-11 10:07 | XMS_ITS | Encounter Summary ---
Author Organization [place] Address [address] [place] [address] Care Team Providers Care Dance Teacher Name Role Phone Anuj Collins Primary Care Provider Sarai Bailon RN Unavailable Kamilah Marroquin MD Unavailable [phone] Kamilah Marroquin MD Unavailable [phone] Kamilah Marroquin MD Unavailable [phone] Ketan Garcia MD Unavailable + Reason for Visit * Reason Onset Date Comments Medication Question 02/08/2020 somatropin ( OMNITROPE) 5 MG/1.5ML SOLN Encounter Details Date Type Department Care Team (Late st Contact Info) Description 02/08/2020 Telephone [facility] Endocrinology [address] [facility] [address] 3rd [place] [address] Kamliah Marroquin MD 420 [facility] 136 [place] [address] Medication Question (somatropin (OMNITROPE) 5 MG/1.5ML SOLN ) Social History Tobacco Use Types Packs/Day Years [...] encounter Miscellaneous Notes * Telephone Encounter - Neelam Elissa - 02/08/2020 4:04 PM CDT M [facility] Call Center Phone Message May a detailed message be left on voicemail: yes Reason for Call: Medication Question or concern regarding medication Prescription Clarification Name of Medication: somatropin (OMNITROPE) 5 MG/1.5ML SOLN Prescribing Provider: Cara What on the order needs clarification? Laura stated the request for this med sent to [facility] will be cancelled due to pt having an active Prior Authorization until 08/2020. Please call back Laura for any further questions. Thanks. Action Taken: Message routed to: [facility] ENDO Travel Screening: Not Applicable documented in this encounter Plan of Treatment Upcoming Encounters Date Type Department Care Team (Late st Contact Info) Description 08/16/2024 1:30 PM CDT Office Visit [facility] Endocrinology Clinic [address] 3rd [place] [address] Kamilah Marroquin MD [address] [place] [address] documented as of this encounter Visit Diagnoses Not on filedocumented in this encounter Care Teams Dance Teacher Relationship Specialty Start Date End Date Anuj Collins PCP - General Internal Medicine 03/02/13 Sarai Bailon, RN Clinic Occupational Health Professional Neurological Surgery 06/12/15 04/23/21 Kamilah Marroquin MD [address] [address] INTERNAL MEDICINE - ENDOCRINOLOGY, DIABETES & METABOLISM 06/03/16 Kamilah Marroquin MD [address] [place] [address] Assigned Endocrinology Provider 09/07/20 04/06/21 Kamilah Marroquin MD [address] [place] [address] [phone] Assigned Endocrinology Provider 08/25/21 Ketan Garcia MD [address] [place] [address] [id number] Assigned Neuroscience Provider 10/18/22 05/07/24 documented as of this encounter
--- OUTSIDE RECORDS SUMMARY | 2024-05-11 10:07 | XMS_ITS | Encounter Summary ---
Author Organization [place] Address [address] [place] [address] Care Team Providers Care Deputy Insurance Commissioner Name Role Phone Anuj Collins Primary Care Provider Kamilah Marroquin MD Unavailable [phone] Kamilah Marroquin MD Unavailable [phone] Ketan Garcia MD Unavailable + Encounter Details Date Type Department Care Team (Late st Contact Info) Description 08/31/2023 [facility] Medical Advice [facility] [address] 3rd [place] [address] Kamilah Marroquin MD [address] [facility] 136 [place] [address] Growth hormone deficiency (H24) (Primary Dx); Panhypopituitarism (H24); Hypogonadism male Social History Tobacco Use Types Packs/Day Years [...] Description 08/16/2024 1:30 PM CDT Office Visit [facility] [place] [address] [facility] [address] 3rd [place] [address] Kamilah Marroquin MD 420 [facility] 136 [place] [address] documented as of this encounter Results * CBC with platelets (09/01/2023 12:27 PM CDT) [facility] WBC Count 5.0 4.0 - 11.0 10e3/uL 09/01/2023 12:36 PM CDT [facility] - CORE LAB RBC Count 4.77 4.40 - 5.90 10e6/uL 09/01/2023 12:36 PM CDT [facility] - CORE LAB Hemoglobin 13.4 13.3 - 17.7 g/dL 09/01/2023 12:36 PM CDT [facility] - CORE LAB Hematocrit 40.5 40.0 - 53.0 % 09/01/2023 12:36 PM CDT [facility] - CORE LAB MCV 85 78 - 100 fL 09/01/2023 12:36 PM CDT [facility] - CORE LAB MCH 28.1 26.5 - 33.0 pg 09/01/2023 12:36 PM CDT [facility] - CORE LAB MCHC 33.1 31.5 - 36.5 g/dL 09/01/2023 12:36 PM CDT [facility] - CORE LAB RDW 13.6 10.0 - 15.0 % 09/01/2023 12:36 PM CDT [facility] - CORE LAB Platelet Count 226 150 - 450 10e3/uL 09/01/2023 12:36 PM CDT [facility] - CORE LAB Blood STRUCTURE OF LEFT UPPER LIMB / Unknown Venipuncture / Unknown 09/01/2023 12:27 PM CDT 09/01/2023 12:28 PM CDT Kamilah Marroquin MD LAB - BLOOD ORDERABL ES [facility] - CORE LAB [facility] [address] [facility] 1st [place] [address] * Cortisol (09/01/2023 12:27 PM CDT) Cortisol 10.5 ug/dL 09/01/2023 6:11 PM CDT [facility] Comment: 6 months and older: 8 AM Cortisol Reference Range: ??4-22 ug/dL 4 PM Cortisol Reference Range: ??3-17 ug/dL Blood STRUCTURE OF LEFT UPPER LIMB / Unknown Venipuncture / Unknown 09/01/2023 12:27 PM CDT 09/01/2023 12:28 PM CDT Kamilah Marroquin MD LAB - BLOOD ORDERABL ES [facility] [address] [facility] [address] [facility], [address] [place] [address], [facility] [phone] * Testosterone total (09/01/2023 12:27 PM CDT) Testosterone Total 250 240 - 950 ng/dL 09/02/2023 1:18 PM CDT SPECIAL DRUG/BGEN Blood STRUCTURE OF LEFT UPPER LIMB / Unknown Venipuncture / Unknown 09/01/2023 12:27 PM CDT 09/01/2023 12:28 PM CDT Kamilah Marroquin MD LAB - BLOOD ORDERABL ES [facility] SPECIAL DRUG/BGEN [facility] Special Drug/BGEN [address] [facility] [address] Building, [address] [place] [address], [facility] [phone] * (ABNORMAL) Insulin Growth Factor 1 by Immunoassay (09/01/2023 12:27 PM CDT) Insulin Like Growth Factor 1 47(L) 53 - 206 ng/mL 09/04/2023 12:24 PM CDT SPECIALTY CORE/PROT/ENDO Blood STRUCTURE OF LEFT UPPER LIMB / Unknown Venipuncture / Unknown 09/01/2023 12:27 PM CDT 09/01/2023 12:28 PM CDT Kamilah Marroquin MD LAB - BLOOD ORDERABL ES UM SPECIALTY CORE/PROT/ENDO Specialty Core/Prot/Endo [address] [facility] [address] Building, [address] [place] [address], [facility] [phone] * Human growth hormone (09/01/2023 12:27 PM CDT) Human Growth Hormone <0.1 <1.3 ug/L 09/02/2023 10:47 AM CDT SPECIALTY CORE/PROT/ENDO Blood STRUCTURE OF LEFT UPPER LIMB / Unknown Venipuncture / Unknown 09/01/2023 12:27 PM CDT 09/01/2023 12:28 PM CDT Kamilah Marroquin MD LAB - BLOOD ORDERABL ES UM SPECIALTY CORE/PROT/ENDO Specialty Core/Prot/Endo 500 [facility], [address] [address], [facility] [phone] * Prolactin (09/01/2023 12:27 PM CDT) Prolactin 5 4 - 15 ng/mL 09/01/2023 6:11 PM CDT [facility] Blood STRUCTURE OF LEFT UPPER LIMB / Unknown Venipuncture / Unknown 09/01/2023 12:27 PM CDT 09/01/2023 12:28 PM CDT Kamilah Marroquin MD LAB - BLOOD ORDERABL ES [facility] [address] [facility] [address] Building, [address] [address], [facility] [phone] * Creatinine (09/01/2023 12:27 PM CDT) Creatinine 0.89 0.67 - 1.17 mg/dL 09/01/2023 12:55 PM CDT [facility] - [facility]ORE LAB GFR Estimate >90 >60 mL/min/1.73 m2 09/01/2023 12:55 PM CDT [facility] - [facility]ORE LAB Blood STRUCTURE OF LEFT UPPER LIMB / Unknown Venipuncture / Unknown 09/01/2023 12:27 PM CDT 09/01/2023 12:28 PM CDT Kamilah Marroquin MD LAB - BLOOD ORDERABL ES [facility] - CORE LAB [facility] Clin[facility] Surgery [address] 1st [place] [address] * Electrolyte panel (09/01/2023 12:27 PM CDT) Sodium 139 135 - 145 mmol/L 09/01/2023 12:55 PM CDT [facility]ORE LAB Comment:Reference intervals for this test were updated on 08/11/2023 to more accurately reflect our healthy population. There may be differences in the flagging of prior results with similar values performed with this method. Interpretation of those prior results can be made in the context of the updated reference intervals. Potassium 4.0 3.4 - 5.3 mmol/L 09/01/2023 12:55 PM CDT [facility] - [facility]ORE LAB Chloride 102 98 - 107 mmol/L 09/01/2023 12:55 PM CDT [facility]ORE LAB Carbon Dioxide (CO2) 28 22 - 29 mmol/L 09/01/2023 12:55 PM CDT [facility]ORE LAB Anion Gap 9 7 - 15 mmol/L 09/01/2023 12:55 PM CDT [facility] Blood STRUCTURE OF LEFT UPPER LIMB / Unknown Venipuncture / Unknown 09/01/2023 12:27 PM CDT 09/01/2023 12:28 PM CDT Kamilah Marroquin MD LAB - BLOOD ORDERABL ES Performing Organization Address City/[facility] Co de Phone Number [facility] - CORE LAB [facility] - [address] 1st [place] [address] * Urea nitrogen (09/01/2023 12:27 PM CDT) Urea Nitrogen 10.2 8.0 - 23.0 mg/dL 09/01/2023 12:54 PM CDT [facility] - [facility]ORE LAB Blood STRUCTURE OF LEFT UPPER LIMB / Unknown Venipuncture / Unknown 09/01/2023 12:27 PM CDT 09/01/2023 12:28 PM CDT Kamilah Marroquin MD LAB - BLOOD ORDERABL ES Performing Organization Address City/[facility] Co de Phone Number [facility] - [facility]ORE [facility] - [address] 1st [place] [address] * T4 free (09/01/2023 12:27 PM CDT) Free T4 1.33 0.90 - 1.70 ng/dL 09/01/2023 1:43 PM CDT [facility] - [facility]ORE LAB Blood STRUCTURE OF LEFT UPPER LIMB / Unknown Venipuncture / Unknown 09/01/2023 12:27 PM CDT 09/01/2023 12:28 PM CDT Kamilah Marroquin MD LAB - BLOOD ORDERABL ES Performing Organization Address City/[facility]/ZIP Co de Phone Number [facility] - [facility]ORE [facility] - [address] 1st [place] [address] * TSH (09/01/2023 12:27 PM CDT) TSH 0.58 0.30 - 4.20 uIU/mL 09/01/2023 1:43 PM CDT [facility]ORE [facility] Blood STRUCTURE OF LEFT UPPER LIMB / Unknown Venipuncture / Unknown 09/01/2023 12:27 PM CDT 09/01/2023 12:28 PM CDT Kamilah Marroquin MD LAB - BLOOD ORDERABL ES Performing Organization Address [facility] Co de Phone Number [facility] - [facility]ORE LAB [address] 1st Floor Lab Core Lab [place], [place] [phone] * Calcium (09/01/2023 12:27 PM CDT) Calcium 9.6 8.8 - 10.2 mg/dL 09/01/2023 12:55 PM CDT [facility] - [facility]ORE LAB Blood STRUCTURE OF LEFT UPPER LIMB / Unknown Venipuncture / Unknown 09/01/2023 12:27 PM CDT 09/01/2023 12:28 PM CDT Kamilah Marroquin MD LAB - BLOOD ORDERABL ES Performing Organization Address [facility] Co de Phone Number [facility] - [facility] [address] 1st Floor Lab Core Lab [place], [place] [phone] * Albumin level (09/01/2023 12:27 PM CDT) Albumin 4.7 3.5 - 5.2 g/dL 09/01/2023 12:55 PM CDT [facility] - [facility]ORE LAB Blood STRUCTURE OF LEFT UPPER LIMB / Unknown Venipuncture / Unknown 09/01/2023 12:27 PM CDT 09/01/2023 12:28 PM CDT Kamilah Marroquin MD LAB - BLOOD ORDERABL ES Performing Organization Address City/[facility]/ZIP Co de Phone Number [facility] [address] 1st [place] [address] documented in this encounter Visit Diagnoses Diagnosis Growth hormone deficiency (H24)- Primary 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
--- OUTSIDE RECORDS SUMMARY | 2024-05-11 10:07 | XMS_ITS | Encounter Summary ---
Author Organization [place] Address [address] [place] [address] Care Team Providers Care Still Operator Batch Or Continuous Name Role Phone DennisAnuj Primary Care Provider [phone] Kamilah Marroquin MD Unavailable [phone] Kamilah Marroquin MD Unavailable [phone] Ketan Garcia MD Unavailable + Reason for Visit * Reason Onset Date Comments Prior Auth - Medication 05/27/2021 somatrop in (OMNITROPE) 5 MG/1.5ML SOLN Encounter Details Date Type Department Care Team (Late st Contact Info) Description 05/27/2021 [facility] Medical Advice [facility] End[facility]ology Clinic [place] [id number] [facility] 3rd [place] [address] Kamilah Marroquin MD [address] [place] [address] 136 [place] [address] Prior Auth - Medication (somatropin (OMNIT... Social History Tobacco Use Types Packs/Day Years [...] encounter Miscellaneous Notes * Telephone Encounter - Radha Lara - 05/27/2021 3:43 PM CDT This is a specialty medication and PA will be handled by the PFA team. 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 Insurance Name:[facility] Pharmacy Information (if different than what is on RX) Name: Phone: documented in this encounter Plan of Treatment Upcoming Encounters Date Type Department Care Team (Late st Contact Info) Description 08/16/2024 1:30 PM CDT Office Visit [facility]ology Clinic [address] 3rd [place] [phone] Kamilah Marroquin MD [address] [place] [address] [phone] documented as of this encounter Visit Diagnoses Not on filedocumented in this encounter Care Teams Still Operator Batch Or Continuous Relationship Specialty Start Date End Date Anuj Collins PCP - General Internal Medicine 03/02/13 Kamilah Marroquin MD [address] [place] [address] [phone] INTERNAL MEDICINE - ENDOCRINOLOGY, DIABETES & METABOLISM 06/03/16 Kamilah Marroquin MD [address] [place] [address] Assigned Endocrinology Provider 08/25/21 Ketan Garcia MD [address] [place] [address] Assigned Neuroscience Provider 10/18/22 05/07/24 documented as of this encounter
--- OUTSIDE RECORDS SUMMARY | 2024-05-11 10:07 | XMS_ITS | Encounter Summary ---
Author Organization [place] Address [address] [place] [address] Care Team Providers Care Business Services Sales Representative Name Role Phone DennisAnuj Primary Care Provider [phone] Kamilah Marroquin MD Unavailable [phone] Kamilah Marroquin MD Unavailable [phone] Ketan Garcia MD Unavailable + Encounter Details Date Type Department Care Team (Late Contact Info) Description 07/24/2022 MyC Medical Advice [facility] Neurosurgery Clinic [address] [address] Norma Cline RN Social History Tobacco Use Types Packs/Day Years Used Date Smoking Tobacco: Never Smokeless Tobacco: Never Alcohol Use Standard Drinks/Week Comments No 0 (1 standard drink = 0.6 oz pur e alcohol) PHQ-2 Answer Date Recorded PHQ-2 Score 0 08/20/2021 Sex and Gender Information Value Date Recorded Sex Assigned at Not on file Gender Identity Not on file Sexual Orientation Not on file COVID-19 Exposure Response Date Recorded In the last 10 days, have yo u been in contact with someone who was confirmed or suspected to have Coronavirus/COVID-19? Unable to assess 07/23/2022 2:45 PM CDT documented as of this encounter Plan of Treatment Upcoming Encounters Date Type Department Care Team (Late Contact Info) Description 08/16/2024 1:30 PM CDT Office Visit [facility] Endocrinology Clinic [place] [address] [facility] 3rd [place] [phone] Kamilah Marroquin MD [address] [place] [address] documented as of this encounter Visit Diagnoses Not on filedocumented in this encounter Care Teams Business Services Sales Representative Relationship Specialty Start Date End Date Anuj Collins [place]on PCP - General Internal Medicine 03/02/13 Kamilah Marroquin MD [address] [place] [address] MD INTERNAL MEDICINE - ENDOCRINOLOGY, DIABETES & METABOLISM 06/03/16 Kamilah Marroquin MD [address] [place] [address] Assigned Endocrinology Provider 08/25/21 Ketan Garcia MD [address] [place] [address] Assigned Neuroscience Provider 10/18/22 05/07/24 documented as of this encounter
--- OUTSIDE RECORDS SUMMARY | 2024-05-11 10:07 | XMS_ITS | Encounter Summary ---
Author Organization [place] Address [address] [place] [address] Care Team Providers Care Head Girls Golf Coach Name Role Phone Anuj Collins Primary Care Provider [phone] Kamilah Marroquin MD Unavailable [phone] Kamilah Marroquin MD Unavailable [phone] Ketan Garcia MD Unavailable + Reason for Visit * Reason Onset Date Comments Prior Auth - Medication 08/28/2023 Omnitrop e renewal pa approved Encounter Details Date Type Department Care Team (Late st Contact Info) Description 08/28/2023 [facility] Endocrinology Clinic [address] 3rd [place] [address] Kamilah Marroquin MD [address] [place] [address] 136 [place] [address] Prior Auth - Medication (Omnitrope renewal pa approved) Social History Tobacco Use Types Packs/Day Years [...] encounter Miscellaneous Notes * Telephone Encounter - Charlene Tao - 10/02/2023 11:57 AM CST Faxed pa approval to lauramary for case update: 10/02/2023 1158am cover plus 4 pages Faxed pa approval to HIM for chart update: 10/02/2023 1159am cover plus 4 pages K DRIVER TEAMSTER * Telephone Encounter - Charlene Tao - 10/02/2023 11:54 AM CST Images from the original note were not included. Prior Authorization Approval Medication: OMNITROPE 5 MG/1.5ML SC SOCT Authorization Effective Date: 10/02/2023 Authorization Expiration Date: 10/02/2024 Approved Dose/Quantity: 1.5ml per 25 day Reference #: [id number] Insurance Company: [employer] [phone] Expected CoPay: $ 0 CoPay Card Available: Financial Assistance Needed: Which Pharmacy is filling the prescription: [facility] - [address] Pharmacy Notified: yes via erx and epic Patient Notified: yes via mychart K DRIVER TEAMSTER * Telephone Encounter - Charlene Tao - 10/01/2023 12:57 PM CST Images from the original note were not included. PA Initiation Medication: OMNITROPE 5 MG/1.5ML SC SOCT Insurance Company: [employer] - Pharmacy Filling the Rx: [facility] - [address] Filling Pharmacy Phone: Filling Pharmacy Fax: Start Date: 10/01/2023 Included fda shortage pdf since norditropin and genotropin are both preferred medications and experiencing shipping backorder issues K DRIVER TEAMSTER * Telephone Encounter - Charlene Tao - 10/01/2023 12:51 PM CST Cris Foley 10/01/23 11:22 AM Note PA Needed Medication: Omnitrope Pa Renewal QTY/DS: 1.5 per 25 days NEW INS: no Insurance Company: [employer] [facility] Pharm[facility] Filling the Rx: [facility] PA : 09/12/23 Date of last fill: 09/03/23 From encounter dated 10/01/2023 K DRIVER TEAMSTER * Telephone Encounter - Charlene Tao - 08/28/2023 4:47 PM CDT Last OV was 09/02/2022, as of 08/28/2023 has appointment 09/01/2023, will submit pa at that time with current OV notes/labs once pended * Telephone Encounter - Charlene Tao - 08/28/2023 4:46 PM CDT Current pa expires 09/12/2023 documented in this encounter Plan of Treatment Upcoming Encounters Date Type Department Care Team (Late st Contact Info) Description 08/16/2024 1:30 PM CDT Office Visit [facility] Endocrinology [facility] [place] [address] [facility] [address] 3rd [place] [address] Kamilah Marroquin MD [address] [place] [address] [address] [place] [address] documented as of this encounter Visit Diagnoses Not on filedocumented in this encounter Care Teams Head Girls Golf Coach Relationship Specialty Start Date End Date Anuj Collins PCP - General Internal Medicine 03/02/13 Kamilah Marroquin MD [address] [phone] INTERNAL MEDICINE - ENDOCRINOLOGY, DIABETES & METABOLISM 06/03/16 Kamilah Marroquin MD [address] [phone] Assigned Endocrinology Provider 08/25/21 Ketan Garcia MD [address] [place] [address] [phone] Assigned Neuroscience Provider 10/18/22 05/07/24 documented as of this encounter
--- OUTSIDE RECORDS SUMMARY | 2024-05-11 10:07 | XMS_ITS | Encounter Summary ---
Author Organization [place] Address [address] [place] [address] Care Team Providers Care Dental Practitioner Name Role Phone DennisAnuj Primary Care Provider [phone] Kamilah Marroquin MD Unavailable [phone] Kamilah Marroquin MD Unavailable [phone] Ketan Garcia MD Unavailable + Encounter Details Date Type Department Care Team ([facility] Contact Info) Description 08/26/2022 [facility] Endocr[facility]ology Clinic [address] [address] Tanika Valdez, RN Social History Tobacco Use Types Packs/Day [...] suspected to have Coronavirus/COVID-19? Unable to assess 08/01/2022 9:34 AM CDT documented as of this encounter Plan of Treatment Upcoming Encounters Date Type Department Care Team ([facility] Contact Info) Description 08/16/2024 1:30 PM CDT Office Visit [facility] Endocrinology Clinic [address] [place] [phone] Kamilah Marroquin MD [address] [place] [address] documented as of this encounter Visit Diagnoses Not on filedocumented in this encounter Care Teams Dental Practitioner Relationship Specialty Start Date End Date Anuj Collins PCP - General Internal Medicine 03/02/13 Kamilah Marroquin MD [address] [place] [address] INTERNAL MEDICINE - ENDOCRINOLOGY, DIABETES & METABOLISM 06/03/16 Kamilah Marroquin MD [address] [place] [address] Assigned Endocrinology Provider 08/25/21 Ketan Garcia MD [address] [place] [address] Assigned Neuroscience Provider 10/18/22 05/07/24 documented as of this encounter
--- OUTSIDE RECORDS SUMMARY | 2024-05-11 10:07 | XMS_ITS | Encounter Summary ---
Author Organization [place] Address [address] [place] [address] Care Team Providers Care Milk Treater Name Role Phone DennisAnuj Primary Care Provider [phone] Kamilah Marroquin MD Unavailable [phone] Kamilah Marroquin MD Unavailable [phone] Ketan Garcia MD Unavailable + Encounter Details Date Type Department Care Team ([facility] Contact Info) Description 08/05/2022 [facility] [place] [facility] Endocrinology Clinic [address] [address] Galina Holder, RN Social History Tobacco Use Types Packs/Day [...] Upcoming Encounters Date Type Department Care Team ([facility] Contact Info) Description 08/16/2024 1:30 PM CDT Office Visit [facility] Endocrinology Clinic [address] [place] [phone] Kamilah Marroquin MD [address] [place] [address] documented as of this encounter Visit Diagnoses Not on filedocumented in this encounter Care Teams Milk Treater Relationship Specialty Start Date End Date Anuj Collins PCP - General Internal Medicine 03/02/13 Kamilah Marroquin MD [address] [place] [address] INTERNAL MEDICINE - ENDOCRINOLOGY, DIABETES & METABOLISM 06/03/16 Kamilah Marroquin MD [address] [place] [address] Assigned Endocrinology Provider 08/25/21 Ketan Garcia MD [address] [place] [address] Assigned Neuroscience Provider 10/18/22 05/07/24 documented as of this encounter
--- OUTSIDE RECORDS SUMMARY | 2024-05-11 10:07 | XMS_ITS | Encounter Summary ---
Author Organization [place] Address [address] [place] [address] Care Team Providers Care Sealer Aircraft Name Role Phone Anuj Collins Primary Care Provider [phone] Kamilah Marroquin MD Unavailable [phone] Kamilah Marroquin MD Unavailable [phone] Ketan Garcia MD Unavailable + Reason for Visit * Reason Onset Date Comments Call Back 07/23/2022 Encounter Details Date Type Department Care Team (Late st Contact Info) Description 07/23/2022 Telephone [facility] [place] [address] [facility] [address] 3rd [place] [address] Kamilah Marroquin MD [address] [facility] [address] [place] [address] Call Back Social History Tobacco Use Types Packs/Day Years [...] PM CDT documented as of this encounter Miscellaneous Notes * Telephone Encounter - Roxanna Sousa - 07/23/2022 2:46 PM CDT [facility] Call Center Phone Message May a detailed message be left on voicemail: yes Reason for Call: Other: patient calling in. Would like to know if there are any orders that Dr Marroquin would like done before his 12/23/2022 appointment. Thank you. Action Taken: Other: Endo Travel Screening: Not Applicable documented in this encounter Plan of Treatment Upcoming Encounters Date Type Department Care Team (Late st Contact Info) Description 08/16/2024 1:30 PM CDT Office Visit [facility] [address] 3rd [place] [address] Kamilah Marroquin MD [address] [place] [address] 136 [place] [address] documented as of this encounter Results * Calcium (09/02/2022 8:03 AM CDT) Pathologist [facility] Calcium 9.4 8.6 - 10.0 mg/dL 09/02/2022 8:30 AM CDT LABORATORY Blood STRUCTURE OF RIGHT UPPER LIMB / Unknown Venipuncture / Unknown 09/02/2022 8:03 AM CDT 09/02/2022 8:03 AM CDT Kamilah Marroquin MD LAB - BLOOD ORDERABL ES LABORATORY [facility] Lab [address] [facility] Lab (1st floor, no room number) [place] [address], [facility] [phone] * Albumin level (09/02/2022 8:03 AM CDT) Pathologist [facility] Albumin 4.3 3.5 - 5.2 g/dL 09/02/2022 8:30 AM CDT LABORATORY Blood STRUCTURE OF RIGHT UPPER LIMB / Unknown Venipuncture / Unknown 09/02/2022 8:03 AM CDT 09/02/2022 8:03 AM CDT Kamilah Marroquin MD LAB - BLOOD ORDERABL ES LABORATORY [facility] Lab [address] Lab (1st floor, no room number) [place] [address], [facility] [phone] * Cortisol (09/02/2022 8:03 AM CDT) Cortisol 10.4 ug/dL 09/02/2022 11:43 AM CDT [facility] LABORATORY Comment: 6 months and older: 8 AM Cortisol Reference Range: ??4-22 ug/dL 4 PM Cortisol Reference Range: ??3-17 ug/dL 8 hrs post 1 mg dexamethasone given at midnight: < 5 ??g/dL Blood STRUCTURE OF RIGHT UPPER LIMB / Unknown Venipuncture / Unknown 09/02/2022 8:03 AM CDT 09/02/2022 8:03 AM CDT Kamilah Marroquin MD LAB - BLOOD ORDERABL ES U LABORATORY [facility] [place] Core Lab [address] [facility], Room [address] [address], [place] [phone] * Insulin Growth Factor 1 by Immunoassay (09/02/2022 8:03 AM CDT) Insulin Like Growth Factor 1 109 55 - 203 ng/mL 09/05/2022 10:35 AM CDT SPECIALTY CORE/PROT/ENDO Blood STRUCTURE OF RIGHT UPPER LIMB / Unknown Venipuncture / Unknown 09/02/2022 8:03 AM CDT 09/02/2022 8:03 AM CDT Kamilah Marroquin MD LAB - BLOOD ORDERABL ES SPECIALTY CORE/PROT/ENDO Specialty Core/Prot/Endo [address] [facility], Room [address] [phone] * Human growth hormone (09/02/2022 8:03 AM CDT) Human Growth Hormone 0.1 <1.3 ug/L 09/03/2022 9:53 AM CDT SPECIALTY CORE/PROT/ENDO Blood STRUCTURE OF RIGHT UPPER LIMB / Unknown Venipuncture / Unknown 09/02/2022 8:03 AM CDT 09/02/2022 8:03 AM CDT Kamilah Marroquin MD LAB - BLOOD ORDERABL ES Performing Organization Address City/[facility]/ZIP Co de Phone Number SPECIALTY CORE/PROT/ENDO Specialty Core/Prot/Endo [address] [facility], [address] [phone] * Prolactin (09/02/2022 8:03 AM CDT) Prolactin 6 4 - 15 ng/mL 09/02/2022 11:43 AM CDT [facility] LABORATORY Blood STRUCTURE OF RIGHT UPPER LIMB / Unknown Venipuncture / Unknown 09/02/2022 8:03 AM CDT 09/02/2022 8:03 AM CDT Kamilah Marroquin MD LAB - BLOOD ORDERABL ES UU LABORATORY [facility] [place] [facility] Lab [address] [facility], Room [address] [address], [facility] [phone] * CBC with platelets (09/02/2022 8:03 AM CDT) WBC Count 5.6 4.0 - 11.0 10e3/uL 09/02/2022 8:07 AM CDT RH LABORATORY RBC Count 4.92 4.40 - 5.90 10e6/uL 09/02/2022 8:07 AM CDT RH LABORATORY Hemoglobin 14.3 13.3 - 17.7 g/dL 09/02/2022 8:07 AM CDT RH LABORATORY Hematocrit 44.6 40.0 - 53.0 % 09/02/2022 8:07 AM CDT RH LABORATORY MCV 91 78 - 100 fL 09/02/2022 8:07 AM CDT RH LABORATORY MCH 29.1 26.5 - 33.0 pg 09/02/2022 8:07 AM CDT RH LABORATORY MCHC 32.1 31.5 - 36.5 g/dL 09/02/2022 8:07 AM CDT RH LABORATORY RDW 13.0 10.0 - 15.0 % 09/02/2022 8:07 AM CDT RH LABORATORY Platelet Count 220 150 - 450 10e3/uL 09/02/2022 8:07 AM CDT RH LABORATORY Blood STRUCTURE OF RIGHT UPPER LIMB / Unknown Venipuncture / Unknown 09/02/2022 8:03 AM CDT 09/02/2022 8:03 AM CDT Kamilah Marroquin MD LAB - BLOOD ORDERABL ES [facility] Care Lab [address] [employer] Lab (1st floor, no room number) [place] [address], [facility] [phone] * T4 free (09/02/2022 8:03 AM CDT) Free T4 1.26 0.90 - 1.70 ng/dL 09/02/2022 8:35 AM CDT RH LABORATORY Blood STRUCTURE OF RIGHT UPPER LIMB / Unknown Venipuncture / Unknown 09/02/2022 8:03 AM CDT 09/02/2022 8:03 AM CDT Kamilah Marroquin MD LAB - BLOOD ORDERABL ES [facility] Acute Care Lab [address] Lab (1st floor, no room number) [place] [address], [facility] [phone] * TSH (09/02/2022 8:03 AM CDT) TSH 0.47 0.30 - 4.20 uIU/mL 09/02/2022 8:35 AM CDT LABORATORY Blood STRUCTURE OF RIGHT UPPER LIMB / Unknown Venipuncture / Unknown 09/02/2022 8:03 AM CDT 09/02/2022 8:03 AM CDT Kamilah Marroquin MD LAB - BLOOD ORDERABL ES LABORATORY [facility] Care Lab [address] Lab (1st floor, no room number) [place] [address], [facility] [phone] * Urea nitrogen (09/02/2022 8:03 AM CDT) Urea Nitrogen 11.2 8.0 - 23.0 mg/dL 09/02/2022 8:30 AM CDT LABORATORY Blood STRUCTURE OF RIGHT UPPER LIMB / Unknown Venipuncture / Unknown 09/02/2022 8:03 AM CDT 09/02/2022 8:03 AM CDT Kamilah Marroquin MD LAB - BLOOD ORDERABL ES LABORATORY [facility] Care Lab [address] Lab (1st floor, no room number) [place] [address], [facility] [phone] * Creatinine (09/02/2022 8:03 AM CDT) Creatinine 0.82 0.67 - 1.17 mg/dL 09/02/2022 8:30 AM CDT LABORATORY GFR Estimate >90 >60 mL/min/1.7 3m2 09/02/2022 8:30 AM CDT LABORATORY Comment:Effective October 172020 eGFRcr in adults is calculated using the 2020 CKD-EPI creatinine equation which includes age and gender (Artillery Specialist et al., NEJM, DOI: 10.1056/EQUZxt1022206) Blood STRUCTURE OF RIGHT UPPER LIMB / Unknown Venipuncture / Unknown 09/02/2022 8:03 AM CDT 09/02/2022 8:03 AM CDT Kamilah Marroquin MD LAB - BLOOD ORDERABL ES [facility] Acute Care Lab [address] Lab (1st floor, no room number) [place] [address], [place] [phone] * Electrolyte panel (09/02/2022 8:03 AM CDT) [facility] Sodium 140 136 - 145 mmol/L 09/02/2022 8:30 AM CDT LABORATORY Potassium 4.4 3.4 - 5.3 mmol/L 09/02/2022 8:30 AM CDT LABORATORY Chloride 102 98 - 107 mmol/L 09/02/2022 8:30 AM CDT LABORATORY Carbon Dioxide (CO2) 28 22 - 29 mmol/L 09/02/2022 8:30 AM CDT LABORATORY Anion Gap 10 7 - 15 mmol/L 09/02/2022 8:30 AM CDT LABORATORY Blood STRUCTURE OF RIGHT UPPER LIMB / Unknown Venipuncture / Unknown 09/02/2022 8:03 AM CDT 09/02/2022 8:03 AM CDT Kamilah Marroquin MD LAB - BLOOD ORDERABL ES [facility] Care Lab [address] Lab (1st floor, no room number) [place] [address], [place] [phone] documented in this encounter Visit Diagnoses Diagnosis 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
--- OUTSIDE RECORDS SUMMARY | 2024-05-11 10:07 | XMS_ITS | Encounter Summary ---
Author Organization [place] Address [address] [place] [address] Care Team Providers Care Career Based Intervention Coordinator Name Role Phone Anuj Collins Primary Care Provider [phone] Kamilah Marroquin MD Unavailable [phone] Kamilah Marroquin MD Unavailable [phone] Ketan Garcia MD Unavailable + Reason for Visit * Reason Onset Date Comments Medication Question 12/22/2023 Prior Auth - Medication 12/22/2023 Genotrop in needed due to omnitrope backorder pa not needed Encounter Details Date Type Department Care Team (Late st Contact Info) Description 12/22/2023 Telephone [facility] [place] [id number] [facility] [address] 3rd [place] [address] Kamilah Marroquin MD [address] [place] [address] [address] [place] [address] Medication Question; Prior Auth - Medication (Genotropin needed due to omnitrope backorder pa not needed) Social History Tobacco Use Types Packs/Day Years [...] * Telephone Encounter - Charlene Tao - 12/31/2023 4:05 PM CST Smn completed to best of liaison ability. Emailed to provider and nurse for final completion 12/31/2023 408pm S AND DISPLAYS SALES REPRESENTATIVE * Telephone Encounter - Charleen Tao - 12/29/2023 12:29 PM CST Genotropin 5mg, test claim based on daily dose 0.2mg. 1ml per 25 day supply Comes up clean test claim with $150 copay pa expires 10/02/2024 per claim detail. [facility] to follow for new start services and device. Please send new prescription to [facility] for Genotropin 5mg, qty 1ml per 25 days, daily dose 0.2mg based on previous prescription. Indication of Growth hormone deficiency (H24) [E23.0] Prior Authorization Not Needed per Insurance Medication: GENOTROPIN 5 MG SC CART Insurance Company: [employer] Expected CoPay: $ 150 Pharmacy Filling the Rx: [facility] Pharmacy Notified: Patient Notified: S AND DISPLAYS SALES REPRESENTATIVE * Telephone Encounter - Pati Saldaña - 12/22/2023 4:25 PM CST [facility] Phone Message May a detailed message be left on voicemail: yes Reason for Call: Medication Question or concern regarding medication Prescription Clarification Name of Medication: Omnitrope Prescribing Provider: Cara Pharmacy: [facility] - [place], [place] - [facility] [address] What on the order needs clarification? This is on back order until February, is there another medication you would like to use, please call back. 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
--- OUTSIDE RECORDS SUMMARY | 2024-05-11 10:07 | XMS_ITS | Encounter Summary ---
Author Organization [place] Address [address] [place] [address] Care Team Providers Care Resident Physician Name Role Phone Anuj Collins Primary Care Provider [phone] Sarai Bailon RN Unavailable Kamilah Marroquin MD Unavailable [phone] Kamilah Marroquin MD Unavailable [phone] Ketan Garcia MD Unavailable + Encounter Details Date Type Department Care Team (Late Contact Info) Description 04/18/2021 MyC Medical Advice [facility] Endocrinology [address] [place] [address] Tanika Valdez, RN Social History Tobacco [...] Upcoming Encounters Date Type Department Care Team ([facility] Contact Info) Description 08/16/2024 1:30 PM CDT Office Visit [facility] End[facility]ology Clinic [address] [address] Kamilah Marroquin MD [address] [address] documented as of this encounter Visit Diagnoses Not on filedocumented in this encounter Care Teams Resident Physician Relationship Specialty Start Date End Date Anuj Collins [place]on PCP - General Internal Medicine 03/02/13 Sarai Bailon, RN Clinic Incident Manager Neurological Surgery 06/12/15 04/23/21 Kamilah Marroquin MD [address] [place] [address] MD INTERNAL MEDICINE - ENDOCRINOLOGY, DIABETES & METABOLISM 06/03/16 Kamilah Marroquin MD [address] [place] [address] Assigned Endocrinology Provider 08/25/21 Ketan Garcia MD 9[address] [place] [address] Assigned Neuroscience Provider 10/18/22 05/07/24 documented as of this encounter
--- OUTSIDE RECORDS SUMMARY | 2024-05-11 10:07 | XMS_ITS | Clinical Summary ---
Author Organization [facility] Address [place], [place] [address] Care Team Providers Care Test Fixture Assembler Name Role Phone Pcp, No Primary Care Provider Unavailabl e Allergies Active Allergy Reactions Criticality Noted Date Comments Penicillins 02/04/2011 Medications Medication Sig Dispensed Refills Start Date End Date Status azithromycin (ZITHROMAX) 250 mg tablet Take by mouth. Take 500 mg (2 tabs) by mouth on day 1, then 250 mg (1 tab) daily for days 2-5. 6 tablet 0 02/04/2011 Active Immunizations Name Administration Dates Next Due Hepatitis B (Adult) 01/02/2009,08/01/2008,2007 Social History Tobacco Use Types Packs/Day Years Used Date Smoking Tobacco: Never Alcohol Use Standard Drinks/Week Comments Not Asked 0 (1 standard drink = 0.6 oz pur e alcohol) Sex and Gender Information Value Date Recorded Sex Assigned at Not on file Gender Identity Not on file Sexual Orientation Not on file Obstetrics History Last Filed Vital Signs Vital Sign Reading Time Taken Comments Blood Pressure 122/70 02/04/2011 9:19 AM CDT Pulse 66 02/04/2011 9:19 AM CDT Temperature 36.1 ??C (97 ??F) 02/04/2011 9:19 AM CDT Respiratory Rate 16 02/04/2011 9:19 AM CDT Oxygen Saturation - - Inhaled Oxygen Concentration - - Weight 94.3 kg (207 lb 12.8 oz) 02/04/2011 9:19 AM CDT Height - - Body Mass Index - - Plan of Treatment Health Maintenance Due Date Last Done Comments Tdap 1973 Depression screening for age 12+ 1974 HIV for age 15-65 1977 BMI (ht and wt on same day) for age 18+ 1980 Hepatitis C screening for ag e 18-79 1980 Tetanus booster 1982 Colonoscopy through age 75 2007 Lipids for age 45-75 2007 Zoster (shingles) series for age 50+ (1 of 2) 2012 COVID-19 vaccine series ( - 2022- season) 2023 Influenza for age 50-64 07/17/2024 Pneumococcal series for age 6-64 Aged Out No longer eligible based on patient's age to complete this topic Care Teams Test Fixture Assembler Relationship Specialty Start Date End Date Pcp, No . PCP - General 05/23/08
--- OUTSIDE RECORDS SUMMARY | 2024-05-11 10:07 | XMS_ITS | Encounter Summary ---
Author Organization [place] Address [address] [place] [address] Care Team Providers Care Spa Assistant Manager Name Role Phone Anuj Collins Primary Care Provider [phone] Kamilah Marroquin MD Unavailable [phone] Kamilah Marroquin MD Unavailable [phone] Ketan Garcia MD Unavailable + Reason for Visit * Reason Onset Date Comments Appointment 10/15/2022 Encounter Details Date Type Department Care Team (Late st Contact Info) Description 10/15/2022 Telephone [facility] [address] [address] Ketan Garcia MD [address] [place] [address] Appointment Social History Tobacco Use Types Packs/Day Years [...] was confirmed or suspected to have Coronavirus/COVID-19? No / Unsure 10/13/2022 2:24 PM STEEL SPAR OPERATOR documented as of this encounter Miscellaneous Notes * Telephone Encounter - Jody Moura - 10/15/2022 7:09 AM CST Defer Scheduling- 5yr follow up- Telephone visit with Dr Garcia. MRI PRIOR L SPAR OPERATOR documented in this encounter Plan of Treatment Upcoming Encounters Date Type Department Care Team (Late st Contact Info) Description 08/16/2024 1:30 PM CDT Office Visit [facility] [address] 3rd [place] [phone] Kamilah Marroquin MD [address] [place] [address] [phone] documented as of this encounter Visit Diagnoses Not on filedocumented in this encounter Care Teams Spa Assistant Manager Relationship Specialty Start Date End Date Anuj Collins PCP - General Internal Medicine 03/02/13 Kamilah Marroquin MD [address] [place] [address]645 MD INTERNAL MEDICINE - ENDOCRINOLOGY, DIABETES & METABOLISM 06/03/16 Kamilah Marroquin MD [address] [place] [address]005 Assigned Endocrinology Provider 08/25/21 Ketan Garcia MD [address] [place] [address]275 Assigned Neuroscience Provider 10/18/22 05/07/24 documented as of this encounter
--- OUTSIDE RECORDS SUMMARY | 2024-05-11 10:07 | XMS_ITS | Encounter Summary ---
Author Organization [place] Address [address] [place] [address] Care Team Providers Care Flea Market Seller Name Role Phone Anuj Collins Primary Care Provider [phone] Sarai Bailon RN Unavailable Kamilah Marroquin MD Unavailable [phone] Kamilah Marroquin MD Unavailable [phone] Kamilah Marroquin MD Unavailable [phone] Ketan Garcia MD Unavailable + Reason for Visit * Reason Onset Date Comments Prior Auth - Medication 03/06/2020 testoste nikolai (ANDROGEL 1.62% PUMP) 20.25 MG/ACT gel-PA approved Encounter Details Date Type Department Care Team (Late st Contact Info) Description 03/06/2020 Telephone [facility] Endocrinology [address] [facility] [address] 3rd [place] [address] Valdez Enamorado MD [address] [place] [address] [address] [place] [address] Prior Auth - Medication (testosterone (ANDROGEL 1.62% PUMP) 20.25 MG/ACT gel-PA approved) Social History Tobacco Use Types Packs/Day [...] * Telephone Encounter - Radha Lara - 03/07/2020 12:09 PM CDT Images from the original note were not included. Prior Authorization Approval Authorization Effective Date: 03/07/2020 Authorization Expiration Date: 03/07/2021 Medication: testosterone (ANDROGEL 1.62% PUMP) 20.25 MG/ACT gel-PA approved Approved Dose/Quantity: Reference #: [id number] Insurance Company: [employer] [place] - Expected CoPay: CoPay Card Available: [facility] Assistance Needed: Which Pharmacy is filling the prescription (Not needed for infusion/clinic administered): [facility] - [address] Pharmacy Notified: Yes Patient Notified: No * Telephone Encounter - Radha Lara - 03/06/2020 8:17 AM CDT Images from the original note were not included. Central Prior Authorization Team PA Initiation Medication: testosterone (ANDROGEL 1.62% PUMP) 20.25 MG/ACT gel-PA initiated Insurance Company: [employer] [place] - Pharmacy Filling the Rx: [facility] - [address] Filling Pharmacy Filling Pharmacy Fax: Start Date: 03/06/2020 * Telephone Encounter - Gisselle Villeda - 03/06/2020 7:46 AM CDT Images from the original note were not included. Pharmacy has started a Prior Authorization request via [employer] for Testosterone 20.25 MG/ACT(1.62%) gel, Guerra: [id number] documented in this encounter Plan of Treatment Upcoming Encounters Date Type Department Care Team (Late st Contact Info) Description 08/16/2024 1:30 PM CDT Office Visit [facility] End[facility]ology Clinic [address]rd [place] [phone] Kamilah Marroquin MD [address] [place] [address] [phone] documented as of this encounter Visit Diagnoses Not on filedocumented in this encounter Care Teams Flea Market Seller Relationship Specialty Start Date End Date Anuj Collins PCP - General Internal Medicine 03/02/13 Sarai Bailon, RN Clinic Manufacturing Quality Manager Neurological Surgery 06/12/15 04/23/21 Kamilah Marroquin MD [address] [place] [address] [id number] INTERNAL MEDICINE - ENDOCRINOLOGY, DIABETES & METABOLISM 06/03/16 Kamilah Marroquin MD [address] [place] [address] [phone] Assigned Endocrinology Provider 09/07/20 04/06/21 Kamilah Marroquin MD [address] [place] [address] [phone] Assigned Endocrinology Provider 08/25/21 Ketan Garcia MD [address] [place] [address] [id number] Assigned Neuroscience Provider 10/18/22 05/07/24 documented as of this encounter
--- OUTSIDE RECORDS SUMMARY | 2024-05-11 10:08 | XMS_ITS | Referral Summary ---
Author Organization [employer] Address [facility] [place] [address] Care Team Providers Care Wire Coiner Name Role Phone Jennifer Rico MD Primary Care Provider [phone] Allergies Active Allergy Reactions Criticality Noted Date Comments Penicillins Unknown Reaction Low 06/30/2019 Medications Medication Sig Dispensed Refills Start Date End Date Status levothyroxine (AKA: SYNTHROID) 75 mcg oral Tablet Take 1 tablet by mouth daily. Active ANDROGEL 20.25 mg/1.25 gram (1.62 %) transdermal Gel in Metered-dose Pump 1 application by transdermal route as directed. Active multivitamin therapeutic oral Tablet Take 1 tablet by mouth daily. Active Somatropin 5 mg/1.5 mL (3.3 mg/mL) subcutaneous Cartridge Inject 0.2 mg subcutaneously daily. 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 Never 08/01/2020 Average Number of Drinks Not on file 020 Frequency of Binge Drinking Not on file 07/17 Depression (PHQ-9) Answer Date Recorded Last PHQ-9 Score Not on file 07/01/2021 Thoughts of self harm Not at all 07/01/2021 Sex and Gender Information Value Date Recorded Sex Assigned at Not on file Gender Identity Not on file Sexual Orientation Not on file Last Filed Vital Signs Vital Sign Reading Time Taken Comments Blood Pressure 96/70 08/23/2020 8:12 AM CDT Pulse 70 08/23/2020 8:12 AM CDT Temperature 36.3 ??C (97.3 ??F) 08/23/2020 7:42 AM CD T Respiratory Rate 13 08/23/2020 7:43 AM CDT Oxygen Saturation 94% 08/23/2020 8:12 AM CDT Inhaled Oxygen Concentration - - Weight 89.8 kg (197 lb 14.4 oz) 08/23/2020 6:52 AM CDT Height 180.3 cm (5' 11) 08/23/2020 6:52 AM CDT Body Mass Index 27.6 08/23/2020 6:52 AM CDT Functional Status Functional Status Response Date of Assess ment Are you deaf or do you have serious difficulty h earing? No 08/01/2020 Are you blind or do you have serious difficulty seeing, even when wearing glasses? No 08/01/2020 Do you have serious difficul ty walking or climbing stairs? No 07/23/2016 Do you have difficulty dressing or bathing? No 07/23/2016 Do you have difficulty doing errands alone such as visiting a doctor's office or shopping because of a physical, mental, or emotional condition? No 07/23/2016 Cognitive Status Response Date of Assessm ent Do you have trouble concentr ating, remembering, or making decisions because of a physical, mental, or emotional condition? No 08/01/2020 Plan of Treatment Not on file Procedures Procedure Name Priority Date/Time Associated Diagnosis Comments COLONOSCOPY Routine 08/23/2020 6:50 AM CDT LIPID PANEL Routine 06/11/2020 10:24 AM CDT Screening, lipid from Last 3 Months or Most Recently Relevant to Health Maintenance Results * COLONOSCOPY (08/23/2020 6:50 AM CDT) 08/23/2020 6:50 AM CDT Narrative [facility] - 08/23/2020 7:44 AM CDT Patient Name: HAROLDO MUNGUIA Procedure Date: 08/23/2020 Date of : 1960 Attending MD: OCTAVIO PIZARRO MD Referring MD JENNIFER RICO Additional Staff Shari ??Hiro, Plumbing Contractor; Edie ??CAIN Carrero Patient Profile - ??Refer to note in patient chart for documentation of history and physical. Patient Profile - ??This is a 59 year old male. Comorbidities - ??Hypothyroidism Indications - ??Screening for colorectal malignant neoplasm Indications - ??Screening for colorectal malignant neoplasm Medications - ??Fentanyl 125 micrograms IV Medications - ??Midazolam 8 mg IV Medications - ??Monitored Anesthesia Care Complications - ??No immediate complications. Estimated Blood Loss - ??Estimated blood loss: none. Procedure - ??Prior to the procedure, a History and Physical was performed, and patient medications, allergies and sensitivities were reviewed. ??The patient's tolerance of previous anesthesia was reviewed. Procedure - ??The risks and benefits of the procedure and the sedation options and risks were discussed with the patient. All questions were answered and informed consent was obtained. Procedure - ??Patient identification and proposed procedure were verified prior to the procedure by the physician. ??The procedure was verified in the procedure room. Procedure - ??Prior to the procedure, a History and Physical was performed, and patient medications, allergies and sensitivities were reviewed. ??The patient's tolerance of previous anesthesia was reviewed. Procedure - ??The risks and benefits of the procedure and the sedation options and risks were discussed with the patient. All questions were answered and informed consent was obtained. Procedure - ??ASA Grade Assessment: ??I - A normal, healthy patient. Procedure - ??Prior Anticoagulants: The patient has taken no anticoagulant or antiplatelet agents. Procedure - The Colonscope was introduced through the anus and advanced to the cecum, identified by appendiceal orifice and ileocecal valve. Procedure - The Colonoscope was introduced through the anus and advanced to the cecum, identified by appendiceal orifice and ileocecal valve. Procedure - ??The colonoscopy was performed without difficulty. Procedure - ??The patient tolerated the procedure well. Procedure - ??The quality of the bowel preparation was good. Procedure - ??The ileocecal valve, appendiceal orifice, and rectum were photographed. Procedure - ??The appendiceal orifice and the ileocecal valve were photographed. Procedure - ??The colonoscopy was performed without difficulty. Procedure - ??The patient tolerated the procedure well. Procedure - ??The quality of the bowel preparation was adequate. Findings - ??The perianal and digital rectal examinations were normal. ??Pertinent negatives include no palpable rectal lesions, normal sphincter tone and normal prostate (size, shape, and consistency). Findings - ??The perianal and digital rectal examinations were normal. Findings - ??The colon (entire examined portion) and rectum (on retroflexion) appeared normal. ?? No biopsies or other specimens were collected for this exam. Findings - ??A few medium-mouthed diverticula were found in the sigmoid colon. ??There was no evidence of diverticular bleeding. Impression - ??The entire examined colon and rectum (on retroflexion) are normal. ??No specimens collected. Impression - ??Mild diverticulosis in the sigmoid colon. ??There was no evidence of diverticular bleeding. Recommendation - ??Discharge patient to home. Recommendation - ??Patient has a contact number available for emergencies. ??The signs and symptoms of potential delayed complications were discussed with the patient. ??Return to normal activities tomorrow. ??Written discharge instructions were provided to the patient. Recommendation - ??Resume previous diet. Recommendation - ??Repeat colonoscopy in 10 years for screening purposes. Procedure Code(s) - G0121, Colorectal cancer screening; colonoscopy on individual not meeting criteria for high risk Diagnosis Code(s) - Z12.11, Encounter for screening for malignant neoplasm of colon Diagnosis Code(s) - E03.9, Hypothyroidism, unspecified Diagnosis Code(s) - K57.30, Diverticulosis of large intestine without perforation or abscess without bleeding Diagnosis Code(s)CPT(R) - 2019 copyright [employer]. All Rights Reserved. Diagnosis Code(s)The CPT codes, CCI edits and ICD codes generated are intended as suggestions and were generated based on input data. ??These codes are preliminary and upon feather maker review may be revised to meet current compliance and payer requirements. ??The provider is responsible for the final determination of appropriate codes, and modifiers. Scope Withdrawal Time 00:12:16 Signature Name: Octavio Pizarro Signature Statement:This document has been electronically signed. Note Initiated On:08/23/2020 Signature Date:08/23/2020 7:44 AM Jennifer Rico MD GI PROCEDURES [facility] [address] [place] [address], [place] * (ABNORMAL) LIPID PANEL (06/11/2020 10:24 AM CDT) Cholesterol 198 0 - 200 mg/dL 06/11/2020 1:00 PM CDT [facility] Triglycerides 155(H) 0 - 150 mg/dL 06/11/2020 1:00 PM CDT [facility] Cholesterol, LDL (Calculated) 127(H) <=100 mg/dL 06/11/2020 1:00 PM CDT [facility] Cholesterol, HDL 40(L) 60 - 150 mg/dL 06/11/2020 1:00 PM CDT [facility] Cholesterol, vLDL 31 0 - 130 mg/dL 06/11/2020 1:00 PM CDT [facility] Blood VENOUS BLOOD SPECIMEN / Unknown Venipuncture / Unknown 06/11/2020 10:24 AM CDT 06/11/2020 10:24 AM CDT Jennifer Rico MD LAB CHEMISTRY SUE VIDAL [facility] [address] [place] [address], from Last 3 Months or Most Recently Relevant to Health Maintenance Care Teams Wire Coiner Relationship Specialty Start Date End Date Jennifer Rico MD PCP - General Family Medicine 07/23/16 Additional Source Comments PLEASE NOTE: Replies to this message will not be received.[facility] and [facility]
--- OUTSIDE RECORDS SUMMARY | 2024-05-11 10:08 | XMS_ITS | Encounter Summary ---
Author Organization [facility] Address [address] [place] [address] Care Team Providers Care Inspector Semiconductor Wafer Name Role Phone Anuj Collins MD Primary Care Provider [phone] Encounter Details Date Type Department Care Team (Late st Contact Info) Description 10/27/2002 Scan [facility] Department [address] [place] [address] Social History Tobacco Use Types Packs/Day Years Used Date Smoking Tobacco: Never Assessed Sex and Gender Information Value Date Recorded Sex Assigned at Not on file Gender Identity Not on file Sexual Orientation Not on file documented as of this encounter Plan of Treatment Not on file documented as of this encounter Procedures Procedure Name Priority Date/Time Associated Diagnosis Comments PROCEDURE - S 10/27/2002 4:56 PM TECHNICAL SOLUTIONS ENGINEER documented in this encounter Results * PROCEDURE - S (10/27/2002 4:56 PM TECHNICAL SOLUTIONS ENGINEER) [facility] Scan PROCEDURE NOTE documented in this encounter Visit Diagnoses Not on filedocumented in this encounter Care Teams Inspector Semiconductor Wafer Relationship Specialty Start Date End Date Anuj Collins MD PCP - General Family Medicine 07/23/16 documented as of this encounter Additional Source Comments PLEASE NOTE: Replies to this message will not be received.[facility]
--- OUTSIDE RECORDS SUMMARY | 2024-05-11 10:08 | XMS_ITS | Encounter Summary ---
Author Organization [employer] Address [address] [place] [address] Care Team Providers Care Clipper Operator Name Role Phone Anuj Collins MD Primary Care Provider [phone]- [phone] Encounter Details Date Type Department Care Team (Late st Contact Info) Description 06/26/2008 Historical Notes [address] [address] Cristo Brewer MD Social History Tobacco Use Types Packs/Day Years Used Date Smoking Tobacco: Never Assessed Sex and Gender Information Value Date Recorded Sex Assigned at Not on file Gender Identity Not on file Sexual Orientation Not on file documented as of this encounter Miscellaneous Notes * Outside ETC Note - Carolina Brewer MD - 06/26/2008 12:00 AM CDT [facility]/HEALTH INFORMATION SERVICES DEPARTMENT [address] [place] [address] * [phone] * FAX [phone] PATIENT: HAROLDO MUNGUIA PT. STATUS: DEP ER UNIT #: [id number] RM/BED: DATE OF VISIT: 06/26/08 AGE: 47 PHYSICIAN: Morris Brewer MD : 64 EMERGENCY ROOM RECORD This 47-year-old an from [place], [place], presented to the emergency room on the evening of 06/26/08 with a dog bite to his left thumb. He had puncture wounds in the lower end, palmar and dorsal aspect, of the distal thumb. It was his own dog that bit him. There was some sort of a misunderstanding with the dog, and his states that he was actually trying to help the dog. The dog is up-to-date on shots. He is on no regular medicine. ALLERGIES: Possible allergy to penicillin. PHYSICAL EXAMINATION: Vital signs are stable and are present on the outpatient ER form. Distinct punctures of the palmar and dorsal aspect of the distal left thumb. His bleeding was controlled. I explained that we typically do not suture these puncture type wounds. ASSESSMENT: 1) Dog bite to his left thumb. PLAN: He was discharged after receiving DT immunization. Tubegauz dressing was placed over the left thumb because of its tendency to continue to ooze blood. Keflex was provided. He will take 500 mg t.i.d. 20 doses given. I explained that he could still get a secondary infection in spite of the prophylactic antibiotic. If that should happen, he needs to see a doctor. Morris Brewer MD Electronically Signed 07/03/08 1940 0945 CC: documented in this encounter Plan of Treatment Not on file documented as of this encounter Visit Diagnoses Not on filedocumented in this encounter Care Teams Clipper Operator Relationship Specialty Start Date End Date Anuj Collins MD PCP - General Family Medicine 07/23/16 documented as of this encounter Additional Source Comments PLEASE NOTE: Replies to this message will not be received.[facility] and [facility]
--- OUTSIDE RECORDS SUMMARY | 2024-05-11 10:08 | XMS_ITS | Encounter Summary ---
Author Organization [employer] Address [address] [place] [address] Care Team Providers Care Autotransfusionist Name Role Phone Anuj Collins Primary Care Provider Sarai Bailon RN Unavailable Kamilah Marroquin MD Unavailable [phone] Kamilah Marroquin MD Unavailable [phone] Kamilah Marroquin MD Unavailable [phone] Ketan Garcia MD Unavailable + Encounter Details Date Type Department Care Team (Late st Contact Info) Description 05/31/2013 Office Visit-P INTERFACE [facility] DEPT Cheng Yanez MD [address] [place] [address] Social History Tobacco Use Types Packs/Day Years Used Date Smoking Tobacco: Never Smokeless Tobacco: Never Alcohol Use Standard Drinks/Week Comments No 0 (1 standard drink = 0.6 oz pur e alcohol) Sex and Gender Information Value Date Recorded Sex Assigned at Not on file Gender Identity Not on file Sexual Orientation Not on file documented as of this encounter Progress Notes * Cheng Yanez MD - 05/31/2013 12:00 AM CDT Auger Machine Offbearer: Cheng Yanez Status: Final - Signature Encounter: 2013-05-31 00:00:00.000 Type: EYE Letter June 02, 2013 Octaviano Garcia M.D. Neurosurgery RE: Haroldo Munguia : 1960 DOS: 05/31/2013 VISUAL FIELD REPORT IMPRESSION: Pituitary tumor. Lacy visual field was performed in each eye with good reliability.The visual lam are normal. Cheng Yanez M.D. Professor Neuro-ophthalmology Service MSL:gerald Electronically signed by:Cheng Yanez M.D. Jun 03 2013 4:09PM MILLER HELPER DISTILLERY documented in this encounter Plan of Treatment Upcoming Encounters Date Type Department Care Team (Late st Contact Info) Description 08/16/2024 1:30 PM CDT Office Visit [facility] [address] 3rd [place] [phone] Kamilah Marroquin MD [address] [place] [phone] documented as of this encounter Visit Diagnoses Not on filedocumented in this encounter Care Teams Autotransfusionist Relationship Specialty Start Date End Date Anuj Collins PCP - General Internal Medicine 03/02/13 Sarai Bailon, RN Clinic Retail Store Assistant Neurological Surgery 06/12/15 04/23/21 Kamilah Marroquin MD [address] [place] [address] [phone] INTERNAL MEDICINE - ENDOCRINOLOGY, DIABETES & METABOLISM 06/03/16 Kamilah Marroquin MD [address] [place] [address] 457015 Assigned Endocrinology Provider 09/07/20 04/06/21 Kamilah Marroquin MD [address] [facility] [address] [place], [place] [address]40[address] Assigned Endocrinology Provider 08/25/21 Ketan Garcia MD [address] [place] [address] [phone] Assigned Neuroscience Provider 10/18/22 05/07/24 documented as of this encounter
--- OUTSIDE RECORDS SUMMARY | 2024-05-11 10:08 | XMS_ITS | Encounter Summary ---
Author Organization [employer] Address [address] [place] [address] Care Team Providers Care V Belt Inspector Name Role Phone Anuj Collins Primary Care Provider [phone] Sarai Bailon RN Unavailable Kamilah Marroquin MD Unavailable [phone] Kamilah Marroquin MD Unavailable [phone] Kamilah Marroquin MD Unavailable [phone] Ketan Garcia MD Unavailable + Encounter Details Date Type Department Care Team (Late st Contact Info) Description 05/02/[address] [facility] 1st Floor, Clinic [address] [place] [address] Ziggy Manzo [address] [address] Social History Tobacco Use Types Packs/Day [...] encounter Miscellaneous Notes * Telephone Encounter - Ziggy Manzo - 05/02/2013 4:36 PM CDT Received a call regarding levothyroxine script not being sent on time to pharmacy. Unfortunately this medication is managed by endocrinology and will defer dosage and script writing to that department. Patient should be instructed to call endocrinology tomorrow. Ziggy Manzo documented in this encounter Plan of Treatment Upcoming Encounters Date Type Department Care Team (Late st Contact Info) Description 08/16/2024 1:30 PM CDT Office Visit [facility] [address]rd [place] [phone] Kamilah Marroquin MD [address] [phone] documented as of this encounter Visit Diagnoses Not on filedocumented in this encounter Care Teams V Belt Inspector Relationship Specialty Start Date End Date Anuj Collins PCP - General Internal Medicine 03/02/13 Sarai Bailon, RN Clinic Sustainable Design Coordinator Neurological Surgery 06/12/15 04/23/21 Kamilah Marroquin MD [address] [place] [address] MD INTERNAL MEDICINE - ENDOCRINOLOGY, DIABETES & METABOLISM 06/03/16 Kamilah Marroquin MD [address] [place] [address] Assigned Endocrinology Provider 09/07/20 04/06/21 Kamilah Marroquin MD [address] [address] Assigned Endocrinology Provider 08/25/21 Ketan Garcia MD [address] [place] [address] Assigned Neuroscience Provider 10/18/22 05/07/24 documented as of this encounter
--- OUTSIDE RECORDS SUMMARY | 2024-05-11 10:08 | XMS_ITS | Encounter Summary ---
Author Organization [facility] Address [address] [place] [address] Care Team Providers Care Truck Driver Supervisor Name Role Phone Anuj Collins Primary Care Provider [phone] Sarai Bailon RN Unavailable Kamilah Marroquin MD Unavailable [phone] Kamilah Marroquin MD Unavailable [phone] Kamilah Marroquin MD Unavailable [phone] Ketan Garcia MD Unavailable + Encounter Details Date Type Department Care Team ([facility] Contact Info) Description 04/28/2018 MyC Medical Advice [facility] Endocrinology [address] [place] [phone] Kirstin Wilson Social History Tobacco Use Types Packs/Day Years [...] Upcoming Encounters Date Type Department Care Team ([facility] Contact Info) Description 08/16/2024 1:30 PM CDT Office Visit [facility] [address] [phone] Kamilah Marroquin MD [address] [address] documented as of this encounter Visit Diagnoses Not on filedocumented in this encounter Care Teams Truck Driver Supervisor Relationship Specialty Start Date End Date Anuj Collins PCP - General Internal Medicine 03/02/13 Sarai Bailon, RN Clinic Sports Teacher Neurological Surgery 06/12/15 04/23/21 Kamilah Marroquin MD [address] [place] [address] INTERNAL MEDICINE - ENDOCRINOLOGY, DIABETES & METABOLISM 06/03/16 Kamilah Marroquin MD [address] [place] [address] Assigned Endocrinology Provider 09/07/20 04/06/21 Kamilah Marroquin MD [address] [place] [address] Assigned Endocrinology Provider 08/25/21 Ketan Garcia MD [address] [place] [address] Assigned Neuroscience Provider 10/18/22 05/07/24 documented as of this encounter
--- OUTSIDE RECORDS SUMMARY | 2024-05-11 10:08 | XMS_ITS | Encounter Summary ---
Author Organization [facility] Address [address] [place] [address] Care Team Providers Care Vocational Director Name Role Phone Anuj Collins Primary Care Provider Sarai Bailon RN Unavailable Kamilah Marroquin MD Unavailable [phone] Kamilah Marroquin MD Unavailable [phone] Kamilah Marroquin MD Unavailable [phone] Ketan Garcia MD Unavailable + Encounter Details Date Type Department Care Team (Late st Contact Info) Description 03/03/2013 Office Visit-P INTERFACE [facility] DEPT Cheng Yanez MD [address] [place] [address] Social History Tobacco Use Types Packs/Day [...] Progress Notes * Cheng Yanez MD - 03/03/2013 12:[address] Design Engineer: hCeng Yanez Status: Final - Signature Encounter: 2013-03-03 12:30:00.000 Type: EYE Letter March 03, 2013 Octaviano Garcia M.D. Neurosurgery RE: Haroldo Munguia : 1960 DOS: 03/03/2013 VISUAL FIELD REPORT INDICATION: Brain tumor. RIGHT EYE: There is temporal visual field defect that respects the vertical meridian. LEFT EYE: There is a temporal visual field defect that respects the vertical meridian that is nearly complete. 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 Cheng Yanez M.D. Professor Neuro-ophthalmology Service MSL:greald Electronically signed by:Cheng Yanez M.D. Mar 04 2013 12:13PM APRICOT WASHER documented in this encounter Plan of Treatment Upcoming Encounters Date Type Department Care Team (Late st Contact Info) Description 08/16/2024 1:30 PM CDT Office Visit [facility] Endocrinology Clinic [address]rd [place] [phone] Kamilah Marroquin MD [address] [address] documented as of this encounter Visit Diagnoses Not on filedocumented in this encounter Care Teams Vocational Director Relationship Specialty Start Date End Date Anuj Collins PCP - General Internal Medicine 03/02/13 Sarai Bailon, RN Clinic Glass Toughening Operator Neurological Surgery 06/12/15 04/23/21 Kamilah Marroquin MD [address] [phone] INTERNAL MEDICINE - ENDOCRINOLOGY, DIABETES & METABOLISM 06/03/16 Kamilah Marroquin MD [address] [place] [address] Assigned Endocrinology Provider 09/07/20 04/06/21 Kamilah Marroquin MD [address] [address] Assigned Endocrinology Provider 08/25/21 Ketan Garcia MD [address] [place] [address] Assigned Neuroscience Provider 10/18/22 05/07/24 documented as of this encounter
--- OUTSIDE RECORDS SUMMARY | 2024-05-11 10:08 | XMS_ITS | Encounter Summary ---
Author Organization [place] Address [address] [place] [address] Care Team Providers Care Snout Puller Name Role Phone Anuj Collins Primary Care Provider Sarai Bailon RN Unavailable Kamilah Marroquin MD Unavailable [phone] Kamilah Marroquin MD Unavailable [phone] Kamilah Marroquin MD Unavailable [phone] Ketan Garcia MD Unavailable + Reason for Visit * Reason Onset Date Comments Medication Request 07/13/2018 [facility] following up on a request for somatropin (GENOTROPIN) Encounter Details Date Type Department Care Team (Late st Contact Info) Description 07/13/2018 Telephone [facility] Endocrinology [address] [facility] [address] [place] [address] Kamilah Marroquin MD [address] [facility] [address] [place] [address] Medication Request ([facility] is following up on a request for somatropin (GENOTROPIN)) Social History Tobacco Use Types Packs/Day Years [...] encounter Miscellaneous Notes * Telephone Encounter - Tanika Valdez RN - 07/13/2018 5:08 PM CDT Grwoth hormone order faxed to Mail order pharmacy * Telephone Encounter - Manny Mittal - 07/13/2018 9:35 AM CDT [facility] Call Center Phone Message May a detailed message be left on voicemail: yes Reason for Call: Other: [facility] is following up on a request for somatropin (GENOTROPIN). They stated they didn't get it and it's due to ship out today. 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 documented in this encounter Care Teams Snout Puller Relationship Specialty Start Date End Date Anuj Collins PCP - General Internal Medicine 03/02/13 Sarai Bailon RN Clinic Grounds Maintenance Worker Neurological Surgery 06/12/15 04/23/21 Kamilah Marroquin MD [address] [place] [address] INTERNAL MEDICINE - ENDOCRINOLOGY, DIABETES & METABOLISM 06/03/16 Kamliah Marroquin MD [address] [place] [address] Assigned Endocrinology Provider 09/07/20 04/06/21 Kamilah Marroquin MD [address] [place] [address] Assigned Endocrinology Provider 08/25/21 Ketan Garcia MD [address] [place] [address] Assigned Neuroscience Provider 10/18/22 05/07/24 documented as of this encounter
--- OUTSIDE RECORDS SUMMARY | 2024-05-11 10:08 | XMS_ITS | Clinical Summary ---
Author Organization [employer] Address [address] [place] [address] Care Team Providers Care Body Cleaner Name Role Phone Jenniefr Rico MD Primary Care Provider [phone]- [phone] Allergies Active Allergy Reactions Criticality Noted Date [...] Mass Index 27.6 08/23/2020 6:52 AM CDT Plan of Treatment Health Maintenance Due Date Last Done Comments Hepatitis C Testing 1960 PHQ-9 Depression Screening 1974 HIV Screen 1977 DTaP/Tdap/Td Vaccines (1 - Tdap) 1981 CT Colonography 2007 Fecal Immunochemical DNA Test (FIT-DNA) 2007 Fecal Immunochemical Test (FIT) 2007 Varicella Zoster Sequential (1 of 2) 2012 Respiratory Syncytial Virus (RSV) Vaccine (1 - 1-dose 60+ series) 2022 COVID-19 Vaccine ( - season) 2023 Influenza Vaccine (Season Ended) 2024 09/07/2019, 08/19/2018, 09/10/2017, Additional history exists Lipids Standard 06/11/2025 06/11/2020 Colonoscopy 08/23/2030 08/23/2020, 10/0 06/2020, 10/27/2002 Colorectal Cancer Screening 08/23/2030 HIB Vaccines Aged Out No longer eligi ble based on patient's age to complete this topic HPV Vaccines Aged Out No longer eligi ble based on patient's age to complete this topic Hepatitis A Vaccines Aged Out No long er eligible based on patient's age to complete this topic Hepatitis B Vaccines Aged Out No long er eligible based on patient's age to complete this topic Meningococcal Vaccines Aged Out No lo nger eligible based on patient's age to complete this topic Pneumococcal Vaccine (0-64 Years) Aged Out No longer eligible based on patient's age to complete this topic Procedures Procedure Name Priority Date/Time Associated Diagnosis Comments COLONOSCOPY Routine 08/23/2020 6:50 AM CDT LIPID PANEL Routine 06/11/2020 10:24 AM CDT Screening, lipid from Last 3 Months or Most Recently Relevant to Health Maintenance Results * COLONOSCOPY (08/23/2020 6:50 AM CDT) 08/23/2020 6:50 AM CDT Narrative [facility] - 08/23/2020 7:44 AM CDT Patient Name: HRAOLDO MUNGUIA Procedure Date: 08/23/2020 Date of : 1960 Attending MD: OCTAVIO PIZARRO MD Referring MD JENNIFER RICO Additional Staff Shari ??Hiro, Playground Attendant; Edie ??CAIN Carrero Patient Profile - ??Refer [...] without bleeding Diagnosis Code(s)CPT(R) - 2019 copyright [employer]. All Rights Reserved. Diagnosis Code(s)The CPT codes, CCI edits and ICD codes generated are intended as suggestions and were generated based on input data. ??These codes are preliminary and upon packaging sales consultant review may be revised to meet current compliance and payer requirements. ??The provider is responsible for the final determination of appropriate codes, and modifiers. Scope Withdrawal Time 00:12:16 Signature Name: Octavio Pizarro Signature Statement:This document has been electronically signed. Note Initiated On:08/23/2020 Signature Date:08/23/2020 7:44 AM Jennifer Rico MD GI PROCEDURES Performing Organization Address [facility]/ZIP Co de Phone Number [facility] [address] [place] [address], [place] * (ABNORMAL) LIPID PANEL (06/11/2020 10:24 AM CDT) Cholesterol 198 0 - 200 mg/dL 06/11/2020 1:00 PM CDT [facility] Triglycerides 155(H) 0 - 150 mg/dL 06/11/2020 1:00 PM T [facility] Cholesterol, LDL (Calculated) 127(H) <=100 mg/dL 06/11/2020 1:00 PM T [facility] Cholesterol, HDL 40(L) 60 - 150 mg/dL 06/11/2020 1:00 PM T [facility] Cholesterol, vLDL 31 0 - 130 mg/dL 06/11/2020 1:00 PM T [facility] Blood VENOUS BLOOD SPECIMEN / Unknown Venipuncture / Unknown 06/11/2020 10:24 AM CDT 06/11/2020 10:24 AM CDT Jennifer Rico MD LAB CHEMISTRY SUE VIDAL Performing Organization Address [facility] Co de Phone Number [facility] [address] [place] [address], [place] [phone] from Last 3 Months or Most Recently Relevant to Health Maintenance Care Teams Body Cleaner Relationship Specialty Start Date End Date Jennifer Rico MD PCP - General Family Medicine 07/23/16 Additional Source Comments PLEASE NOTE: Replies to this message will not be received.[facility] and [facility]
--- OUTSIDE RECORDS SUMMARY | 2024-05-11 10:08 | XMS_ITS | Encounter Summary ---
Author Organization [facility] Address [address] [place] [address] Care Team Providers Care Brake Operator Heavy Duty Name Role Phone Anuj Collins MD Primary Care Provider [phone]- [phone] Encounter Details Date Type Department Care Team (Late st Contact Info) Description 12/15/[address] [facility] Family Medicine [address] [place] [address]. [place] [address] Anuj Collins MD [address] [place] [address] [id number] Social History Tobacco Use Types Packs/Day Years Used Date Smoking Tobacco: Never Smokeless Tobacco: Never Sex and Gender Information Value Date Recorded Sex Assigned at Not on file Gender Identity Not on file Sexual Orientation Not on file documented as of this encounter Last Filed Vital Signs Vital Sign Reading Time Taken Comments Blood Pressure 118/78 12/15/2017 12:00 AM DATA COMMUNICATIONS TECHNICIAN Pulse - - Temperature - - Respiratory Rate - - Oxygen Saturation - - Inhaled Oxygen Concentration - - Weight 102.4 kg (225 lb 12 oz) 12/15/2017 12:00 AM DATA COMMUNICATIONS TECHNICIAN Height - - Body Mass Index 31.49 09/02/2016 8:40 PM CDT documented in this encounter Functional Status Functional Status Response Date of Assess ment Are you deaf or do you have serious difficulty h earing? No 07/23/2016 Are you blind or do you have serious difficulty seeing, even when wearing glasses? No 07/23/2016 Do you have serious difficul ty walking [...] physical, mental, or emotional condition? No 07/23/2016 documented as of this encounter Progress Notes * Anuj Collins MD - 12/15/2017 12:00 AM CST Assessment 1. Never smoked 2. Cough (786.2) (R05) Plan URI with viral GI symptoms. Can use immodium. Will have him do BRAT diet, treat symptomatically. Influ a and b are negative. Plan Orders SocHx: Never smoked Never Smoked: Since tobacco use can have significant health risks, you are helping yourself and others stay healthy by never smoking.; Status:Complete; Done: 15Dec2017 Reason For Visit Patient here for cough, congestion, aches. PGroskrniko DUMONTN History of Present Illness cough, runny nose, low grade temp, occ diarrhea. Concerned he could have flu. Current Meds 1. AndroGel Pump 20.25 MG/ACT (1.62%) Transdermal Gel; APPLY TWO PUMP PRESSES ONE TIME DAILY DIRECTED; Therapy: [id number] to Recorded 2. Genotropin MiniQuick 0.2 MG Subcutaneous Solution Reconstituted; USE DIRECTED; Therapy: 26Jez2532 to (Last Rx:[id number]) Ordered 3. Levothyroxine Sodium 75 MCG Oral Tablet; TAKE ONE TABLET BY MOUTH EVERY DAY; Therapy: 81Zri3799 to (Evaluate:52Trn5989); Last Rx:[id number] Ordered 4. Multi-Vitamin Oral Tablet; TAKE 1 TABLET DAILY; Therapy: 59Ods0381 to (Evaluate:23Jan2016); Last Rx:[id number] Ordered Allergies 1. Penicillins Vitals Vital Signs Recorded: 15Dec2017 03:03PM Systolic 118 Diastolic 78 Heart Rate 75 Respiration 16 Temperature 97.3 F, Tympanic Weight 102.4 kg BMI Calculated 31.26 O2 Saturation 97, RA Physical Exam General Appearance: HAROLDO is healthy-appearing, alert, well nourished, well developed and in no acute distress. Head and Face: normocephalic and no sinus tenderness. Eyes: pupils were equal, round, reactive to light, with normal accommodation, extraocular movementswere intact and the sclera and conjunctiva were normal ENT: both tympanic membranes were clear bilaterally and the oropharynx was clear. Pulmonary: normal bilateral breath sounds and clear to auscultation bilaterally. Cardiovascular: normal heart rate and rhythm and no murmurs heard. Psychiatric: appropriate mood and affect, good eye contact and answers questions appropriately. Signatures Electronically signed by : Anuj Collins M.D.; Dec 15 2017 3:52PM DATA COMMUNICATIONS TECHNICIAN documented in this encounter Plan of Treatment Not on file documented as of this encounter Visit Diagnoses Not on filedocumented in this encounter Care Teams Brake Operator Heavy Duty Relationship Specialty Start Date End Date Anuj Collins MD PCP - General Family Medicine 07/23/16 documented as of this encounter Additional Source Comments PLEASE NOTE: Replies to this message will not be received.[facility] and [facility]
--- OUTSIDE RECORDS SUMMARY | 2024-05-11 10:08 | XMS_ITS | Encounter Summary ---
Author Organization [facility] Address [address] [place] [address] Care Team Providers Care Gold Plater Name Role Phone Anuj Collins MD Primary Care Provider +1- [phone] Encounter Details Date Type Department Care Team (Late st Contact Info) Description 10/25/2015 Historical Conversion [facility] Family Medicine [address] [place] [address]. [place] [address] Anuj Collins MD [address] [place] [address] [id number] Social History Tobacco Use Types Packs/Day Years Used Date Smoking Tobacco: Never Assessed Sex and Gender Information Value Date Recorded Sex Assigned at Not on file Gender Identity Not on file Sexual Orientation Not on file documented as of this encounter Last Filed Vital Signs Vital Sign Reading Time Taken Comments Blood Pressure 116/72 10/25/2015 12:00 AM SHAREPOINT DEVELOPER Pulse - - Temperature - - Respiratory Rate - - Oxygen Saturation - - Inhaled Oxygen Concentration - - Weight 101.8 kg (224 lb 6.9 oz) 015 12:00 AM SHAREPOINT DEVELOPER Height 181 cm (5' 11.26) 10/25/2015 12 :00 AM SHAREPOINT DEVELOPER Body Mass Index 31.07 10/25/2015 12:00 AM SHAREPOINT DEVELOPER documented in this encounter H&P Notes * Anuj Collins - 10/25/2015 12:00 AM CST Chief Complaint/Reason for Visit CPX / Jeanette RN Past Medical History 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 Headache (784.0) (R51) 3. Pituitary neoplasm (239.7) (D49.7) 4. Psoriasis (696.1) (L40.9) Current Meds 1. No Reported Medications Recorded Allergies 1. Penicillins Social History 1. Never smoked Vitals Vital Signs [Data Includes: Current Encounter] Recorded: 11Noz6848 03:53PM Blood Pressure 116 / 72, RUE, Sitting Heart Rate 60, R Radial Pulse Quality Normal, R Radial Respiration 18 Respiration Quality Normal Temperature 97 F, Tympanic Height 181 cm Weight 101.8 kg BMI Calculated 31.07 BSA Calculated 2.22 Assessment 1. Never smoked 2. Encounter for preventive health examination (V70.0) (Z00.00) 3. Fatigue (780.79) (R53.83) SUBJECTIVE: Patient presents for routine annual physical. I have not really seen him much since thetime of his diagnosis of pituitary adenoma and then he has been in mainly seeing surgeons, ENT's and neurologist and the like. He presented with a significant headache that was just kind of strange in presentation at the time resulting in a scan that showed the diagnosis. At the present time he hasa list of concerns. One, his blood pressure had been a little bit higher at home with his home readings and I reassuredhim it was normal today. He is tired a lot of the time wonders about diabetes as he has a family history. We discussed causes of fatigue being anemia, diabetes, thyroid disease, depression, sleep apnea. He does relate to snoring a lot. We talked about doing some basic lab work and if it is negative getting a sleep study. His depression screen does not look like it would be depression that would be causing his difficulty with sleep. He states he had blood work done with high triglycerides it was not done here and I do not know theresults, I do not know what the HDL or LDL he will get me those results. He also complains a little bit about the sore knees, sore neck, sore hips that just really sound like mild symptomatology. His right hip pops a little bit if he moves just right but it does not really hurt. The neck is just a little bit stiff, does not get any radicular symptoms and again the kneesjust tend to ache a little bit. I mentioned that this is probably all aging wear and tear related. He is also due for colonoscopy and is going to get that set up. ALLERGIES: Penicillin MEDICATIONS: See Allscripts. PAST MEDICAL HISTORY: 1. Renal stone 2. Pituitary adenoma 3. Probable sleep apnea FAMILY HISTORY: Father congestive heart failure and chronic obstructive pulmonary disease. Mother had Alzheimer's and adult onset diabetes. Sibling with kidney stones and hypertension. SOCIAL HISTORY: Nonsmoker, nondrinker, daily caffeine. . REVIEW OF SYSTEMS: No headache, double vision, blurry vision. No fevers, chills or sweats, nausea, vomiting, abdominal pain. No chest pain or shortness of breath. He does have the afore mentioned neck stiffness, knee pain and fatigue. OBJECTIVE: Well appearing in no acute distress. BP 116/72, Temperature 97.0, Pulse 60, [id number]. HEENT: Head is normocephalic, atraumatic. Eyes - PERRLA, EOMS intact. Ears - canals are patent,TMS pearly johnson. Oral mucosa moist. His tongue is relatively high riding and posterior. Uvula midline. No erythema. NECK: Supple without lymphadenopathy or thyromegaly. HEART: Regular rate and rhythm without murmur. LUNGS: Clear to auscultation bilaterally. There is no JVD or carotid bruits. ABDOMEN: Soft, nontender with good bowel sounds throughout. No hepatosplenomegaly. EXTREMITIES: Without cyanosis, clubbing or edema. ASSESSMENT and PLAN: 1. Health maintenance. Get him set up for colonoscopy. Get PSA done. 2. Knee achiness, sore neck and occasional right hip pop. Recommended Glucosamine chondroitin supplementation six to eight week trial. 3. Fatigue. We will get CBC, chem profile, TSH if all negative we will set him up for a sleep study. 4. Hypertriglyceridemia. I would like to see his full lipid panel. 5. Blood pressure concerns, normal blood pressure at this time. Anuj Collins M.D./re17 Plan 1. CBC; Status:Resulted - Requires Verification; Done: 09Yaz7121 04:20PM 2. Comprehensive Metabolic Panel; Status:Active; Requested for:[id number]; 3. TSH; Status:Active; Requested for:98Dim6687; 4. PSA; Status:Canceled; 5. Never Smoked: Since tobacco use can have significant health risks, you are helping yourself and others stay healthy by never smoking.; Status:Complete; Done: 18Zkb2788 6. Genotropin MiniQuick 0.2 MG Subcutaneous Solution Reconstituted; USE DIRECTED 7. Levothyroxine Sodium 75 MCG Oral Tablet; TAKE ONE TABLET BY MOUTH EVERY DAY 8. Multi-Vitamin Oral Tablet; TAKE 1 TABLET DAILY 9. Testosterone 25 MG/2.5GM (1%) Transdermal Gel (AndroGel); DIRECTED 10. Drawing Fee; Status:Complete; Done: [id number] Signatures Electronically signed by : Anuj Collins M.D.; Nov 01 2015 12:55PM SHAREPOINT DEVELOPER documented in this encounter Miscellaneous Notes * Letter - Anuj Collins MD - 10/30/2015 12:00 AM CST HAROLDO MUNGUIA [address] [place] [address] Dear Mr. Munguia: Thanks for dropping off the copy of your biometric testing. The numbers of concern were of course your cholesterol and you had some questions about that. I note that your triglycerides were at 452, the top limit of normal is 150. Unfortunately, when the triglycerides are that high they cannot be used to calculate what is called your LDL cholesterol or the bad cholesterol and this is why they put a nonapplicable next to that. Your HDL cholesterol or good cholesterol is a little low at 31. Your total at 196. My suspicion is that your LDL is actually fairly low because your total is only 196, but it would be nice to get a direct LDL reading. We can do a direct LDL, which does not depend upon triglycerides for calculation here in the office so let me know if you are interested in doing that and we will do an LDL measurement only. The LDL was thought to be one of the more important numbers to know and it might color whether or not we would want to do anything specifically for your triglycerides. If your LDL is outstanding we may let the triglycerides go and just recheck next year, if theLDL is borderline or high we may want to treat both the LDL and the triglycerides with a single medication. If you have any questions or concerns, please do not hesitate to contact me. Sincerely, Anuj Collins M.D. Department of Family Practice [facility]/[place]la , documented in this encounter Plan of Treatment Not on file documented as of this encounter Visit Diagnoses Not on filedocumented in this encounter Care Teams Gold Plater Relationship Specialty Start Date End Date Anuj Collins MD PCP - General Family Medicine 07/23/16 documented as of this encounter Additional Source Comments PLEASE NOTE: Replies to this message will not be received.[facility]
--- OUTSIDE RECORDS SUMMARY | 2024-05-11 10:08 | XMS_ITS | Encounter Summary ---
Author Organization [employer] Address [address] [place] [address] Care Team Providers Care Hazard Waste Handler Name Role Phone Anuj Collins MD Primary Care Provider +1- [phone] Encounter Details Date Type Department Care Team (Late st Contact Info) Description 01/22/2018 Historical Conversion [facility] Medicine [address] [place] [address]. [place] [address] Devan Serra, HVAC SALES REPRESENTATIVE,UNMANNED EQUIPMENT OPERATOR Social History Tobacco Use Types Packs/Day Years Used Date Smoking Tobacco: Never Smokeless Tobacco: Never Sex and Gender Information Value Date Recorded Sex Assigned at Not on file Gender Identity Not on file Sexual Orientation Not on file documented as of this encounter Last Filed Vital Signs Vital Sign Reading Time Taken Comments Blood Pressure 122/80 01/22/2018 12:00 AM DECORATING INSPECTOR Pulse - - Temperature - - Respiratory Rate - - Oxygen Saturation - - Inhaled Oxygen Concentration - - Weight 104 kg (229 lb 4.5 oz) 01/22/2018 12:00 A M DECORATING INSPECTOR Height - - Body Mass Index 31.98 09/02/2016 8:40 PM CDT documented in this [...] as of this encounter Progress Notes * Devan Serra, JEN,UNMANNED EQUIPMENT OPERATOR - 01/22/2018 12:00 AM CST Assessment 1. Wrist pain, left (719.43) (M25.532) Plan Patient is given reassurance that the x-ray looks essentially normal. We discussed this is most likely arthritis type inflammation we talked about using oral anti-inflammatories versus topical Aspercreme. If this is getting worse instead of better or he is developing any new symptoms with this willget him set up with a hand specialist for further evaluation. Patient understands and agrees with this plan. note was created with the use of [employer] software and unintentional spelling or errors may have occurred. Reason For Visit check left wrist History of Present Illness This is a 57-year-old male coming to the clinic with pain in his left wrist. Patient states that for about 6 weeks now he has been struggling with pain in his left wrist. States it gets kind of swollen on the medial edge of the wrist. There are certain positions that seem to make it worse and then other things were just does not bother it at all. He has not had any trauma or injury to the area, he has not noticed any weakness at all. He states anything he does with that with weight and his handis painful but is primarily worse with extension. Current Meds 1. AndroGel Pump 20.25 MG/ACT (1.62%) Transdermal Gel; APPLY TWO PUMP PRESSES ONE TIME DAILY DIRECTED; Therapy: 04Bmm0663 to Recorded 2. Genotropin MiniQuick 0.2 MG Subcutaneous Solution Reconstituted; USE DIRECTED; Therapy: 38Hgb9344 to (Last Rx:[id number]) Ordered 3. Levothyroxine Sodium 75 MCG Oral Tablet; TAKE ONE TABLET BY MOUTH EVERY DAY; Therapy: 86Vpb3127 to (Evaluate:24Kgr7902); Last Rx:[id number] Ordered 4. Multi-Vitamin Oral Tablet; TAKE 1 TABLET DAILY; Therapy: 37Iem0117 to (Evaluate:23Jan2016); Last Rx:[id number] Ordered Allergies 1. Penicillins Vitals Vital Signs Recorded: 22Jan2018 01:37PM Systolic 122 Diastolic 80 Heart Rate 88 Respiration 16 Temperature 99.1 F Weight 104 kg BMI Calculated 31.75 BSA Calculated 2.24 O2 Saturation 97 Physical Exam General Appearance: HAROLDO is healthy-appearing, alert, well nourished, well developed and in no acute distress. Musculoskeletal:. Radial pulses are symmetric bilaterally. Capillary refill is less than 2 seconds in all 5 digits on that hand. Patient has normal sensation of 5 digits of the hand. Patient has no obvious swelling or gross deformity at this time. He has full range of motion with flexion-extension internal and external rotation on exam today. Signatures Electronically signed by : Devan Serra RN UNMANNED EQUIPMENT OPERATOR RN,UNMANNED EQUIPMENT OPERATOR; Jan 28 2018 7:33PM DECORATING INSPECTOR documented in this encounter Plan of Treatment Not on file documented as of this encounter Visit Diagnoses Not on filedocumented in this encounter Care Teams Hazard Waste Handler Relationship Specialty Start Date End Date Anuj Collins MD PCP - General Family Medicine 07/23/16 documented as of this encounter Additional Source Comments PLEASE NOTE: Replies to this message will not be received.[facility]
== END 2024-05-11 10:05 | disposition home or self-care (01) ==
PROVIDERS: PCP Family Medicine; Visit Provider Family Medicine
DX: L40.9 Psoriasis, unspecified (principal); E03.9 Hypothyroidism, unspecified; E34.9 Endocrine disorder, unspecified; E23.0 Hypopituitarism; E78.2 Mixed hyperlipidemia
CPT/HCPCS: 80048; 84439; 84443; 84460; 85025

== ENCOUNTER 2024-08-11 07:55 | Outpatient (CLI) | payer BC, SELFPAY | END 2024-08-11 07:56 | disposition home or self-care (01) | PROVIDERS: PCP Family Medicine; Visit Provider Family Medicine | DX: E78.2 Mixed hyperlipidemia (principal); E03.9 Hypothyroidism, unspecified; E23.0 Hypopituitarism; Z13.9 Encounter for screening, unspecified | CPT/HCPCS: 80048; 80061; 84460; 85025 ==

== ENCOUNTER 2025-02-09 07:23 | Outpatient (CLI) | payer BC, SELFPAY | END 2025-02-09 07:24 | disposition home or self-care (01) | PROVIDERS: PCP Family Medicine; Visit Provider Family Medicine | DX: E78.2 Mixed hyperlipidemia (principal); E03.9 Hypothyroidism, unspecified; L40.9 Psoriasis, unspecified; Z12.5 Encounter for screening for malignant neoplasm of prostate | CPT/HCPCS: 80048; 84460; 85025; G0103 ==